=== PATIENT | male | born 1980 | race African-American/Black ===

== ENCOUNTER 2018-02-10 11:48 | Inpatient (IN) | payer SELFPAY ==
[~2018-02-10] VITALS: Ht 190.5 cm; Wt 64.0 kg
[2018-02-10] VITALS (8 sets, daily range): BP systolic 95–114; BP diastolic 64–74; PULSE 78–127; RESP 12–18; TEMP 98–98.4; O2SAT 98–100
[~2018-02-10 11:48] MED LIST: AMIT10TA13 PO
[2018-02-10] MEDS ORDERED: SODIUM CHLOR 0.9% 1000 ML INJ 1,000 ML IV ONE ×3 (12:30→15:15)
--- NOTE | 2018-02-10 12:34 | PD ---
HPI Chief Complaint: Respiratory Symptoms Time Seen by Provider: 12:18 Travel History International Travel<30 days: No Contact w/Intl Traveler<30days: No Traveled to known affect area: No History of Present Illness HPI 37-year-old male with PMH of HIV, noncompliant with medications 2 years presents the ED for evaluation of shortness of breath, nonproductive cough. The patient endorses diminished appetite, weakness. He denies fever, chills, chest pain, palpitations, diaphoresis, nausea, vomiting, changes in bowel habits , rectal bleeding, dysuria. Patient is largely sedentary. A friend is at bedside, notes the patient was "panting" earlier today and brought him in for evaluation. PFSH Past Medical History Diminished Hearing: No Immune Disorder: Yes Social History Alcohol Use: No (LAST DRINK 2 MOS AGO, HE USE TO DRINK HEAVY.) Tobacco Use: No (QUIT MARCH 2007) Substance Use: No Allergies-Medications (Allergen,Severity, Reaction): Coded Allergies: No Known Allergies (Verified , 01/15/10) Reported Meds & Prescriptions Reported Meds & Active Scripts Active Reported Elavil (Amitriptyline HCl) 10 Mg Tab 0 PO HS UNKNOWN DOSE Review of Systems Except as stated in HPI: all other systems reviewed are Neg Physical Exam Narrative GENERAL: Thin, chronically ill-appearing white male in no acute distress. SKIN: Focused skin assessment warm/dry. Mucous membranes dry. Multiple purpleish, dark brown, blanching plaques and nodules of the skin. HEAD: Normocephalic. EYES: No scleral icterus. No injection or drainage. NECK: Supple, trachea midline. No JVD or lymphadenopathy. CARDIOVASCULAR: Regular rate and rhythm without murmurs, gallops, or rubs. RESPIRATORY: Breath sounds clear and equal bilaterally. No accessory muscle use. GASTROINTESTINAL: Abdomen soft, non-tender, nondistended. Active bowel sounds. MUSCULOSKELETAL: No cyanosis, or edema. Negative Homans sign bilaterally. BACK: Nontender without obvious deformity. No CVA tenderness. Data Data Last Documented VS Vital Signs Date Time Temp Pulse Resp B/P (MAP) Pulse Ox O2 Delivery O2 Flow Rate FiO2 02/10/18 15:51 98.4 87 16 104/73 (83) 100 Room Air Orders Orders Sepsis Workup Initiated (02/10/18 ) Electrocardiogram (02/10/18 12:29) Complete Blood Count With Diff (02/10/18 12:29) Comprehensive Metabolic Panel (02/10/18 12:29) Prothrombin Time / Inr (Pt) (02/10/18 12:29) Act Partial Throm Time (Ptt) (02/10/18 12:29) Urinalysis - C+S If Indicated (02/10/18 12:29) Blood Culture (02/10/18 12:29) Chest, Single Ap (02/10/18 12:29) Blood Glucose (02/10/18 12:29) Ecg Monitoring (02/10/18 12:29) Iv Access Insert/Monitor (02/10/18 12:29) Oximetry (02/10/18 12:29) Sodium Chlor 0.9% 1000 Ml Inj (Ns 1000 M (02/10/18 12:30) Lactic Acid (02/10/18 12:29) Ct Pulmonary Angiogram (02/10/18 12:35) Sodium Chlor 0.9% 1000 Ml Inj (Ns 1000 M (02/10/18 13:30) Iohexol 350 Inj (Omnipaque 350 Inj) (02/10/18 14:26) Sodium Chlor 0.9% 1000 Ml Inj (Ns 1000 M (02/10/18 15:15) Ldh Serum (02/10/18 15:12) Sulfamethox/Trimethoprim Inj (Bactrim In (02/10/18 15:45) Labs Laboratory Tests Test 02/10/18 12:10 02/10/18 12:40 White Blood Count 5.7 TH/MM3 Red Blood Count 3.32 MIL/MM3 Hemoglobin 10.0 GM/DL Hematocrit 30.6 % Mean Corpuscular Volume 92.3 FL Mean Corpuscular Hemoglobin 30.0 PG Mean Corpuscular Hemoglobin Concent 32.5 % Red Cell Distribution Width 13.9 % Platelet Count 431 TH/MM3 Mean Platelet Volume 7.3 FL CBC Comment AUTO DIFF Differential Total Cells Counted 100 Neutrophils % (Manual) 21 % Band Neutrophils % 49 % Lymphocytes % 8 % Monocytes % 18 % Neutrophils # (Manual) 4.2 TH/MM3 Metamyelocytes 3 % Myelocytes 1 % Differential Comment FINAL DIFF MANUAL Platelet Estimate NORMAL Platelet Morphology Comment NORMAL Ovalocytes 1+ Prothrombin Time 12.0 SEC Prothromb Time International Ratio 1.2 RATIO Activated Partial Thromboplast Time 41.7 SEC Blood Urea Nitrogen 13 MG/DL Creatinine 0.99 MG/DL Random Glucose 104 MG/DL Total Protein 8.1 GM/DL Albumin 3.2 GM/DL Calcium Level 8.8 MG/DL Alkaline Phosphatase 312 U/L Aspartate Amino Transf (AST/SGOT) 35 U/L Alanine Aminotransferase (ALT/SGPT) 33 U/L Total Bilirubin 0.6 MG/DL Sodium Level 145 MEQ/L Potassium Level 3.5 MEQ/L Chloride Level 108 MEQ/L Carbon Dioxide Level 28.1 MEQ/L Anion Gap 9 MEQ/L Estimat Glomerular Filtration Rate 104 ML/MIN Lactate Dehydrogenase 491 U/L Lactic Acid Level 1.8 mmol/L MDM Medical Decision Making Medical Screen Exam Complete: Yes Emergency Medical Condition: Yes Differential Diagnosis PNA versus PE versus HIV versus AIDS versus metabolic derangement versus dehydration versus other Narrative Course 37-year-old male with PMH of HIV, noncompliant with medications 2 years presents the ED for evaluation of shortness of breath, nonproductive cough. The patient endorses diminished appetite, weakness. Patient is largely sedentary. A friend is at bedside, notes the patient was "panting" earlier today and brought him in for evaluation. Patient is afebrile, pulse 127, BP 95/ 65, respiratory rate 12 O2 saturation 98% on room air on presentation. On exam this is a thin, ill-appearing -English male with a dark blanching rash on the skin surface. Guaiac negative on rectal exam. IV was established. Patient was administered 2 L normal saline. Cultures were obtained. EKG rate 105, sinus tachycardia. Normal intervals. Normal axis. No acute ST changes. Reviewed by Dr. Calhoun. CXR: No acute cardia pulmonary disease per radiology read. CTA: 1. Negative for pulmonary embolus. There is mild peribronchial thickening and there is some ill-defined ground glass opacity at the lung bases. CBC: WBC 5.7. Hemoglobin 10.0. 49% band neutrophils. Coags: INR 1.2. CMP: No concerning abnormalities. Lactic acid 1.8. LDH:491 UA: On recheck pulse 98, BP 99/69. Patient was administered an additional fluid bolus. IV Bactrim was initiated. I discussed the results of the workup and plan with the patient. He is agreeable to admission. I spoke with Dr Vasques who agrees to accept the patient to the medicine service. Please see medicine notes for disposition. [facility] Point of Care Internal Pos. & Neg. Controls: Passed Fecal Specimen Occult Blood: Negative Raysa Bowers February 10, 2018 12:34
[2018-02-10 13:04] LABS: HEMATOCRIT 30.6 % (39.0-51.0); MEAN CELL VOLUME 92.3 FL (80.0-100.0); MEAN CORPUSCULAR HGB CONC 32.5 % (32.0-36.0); MEAN PLATELET VOLUME 7.3 FL (7.0-11.0); PLATELET COUNT 431 TH/MM3 (150-450); RED BLOOD COUNT 3.32 MIL/MM3 (4.50-5.90); RED CELL DISTRIBUTION WIDTH 13.9 % (11.6-17.2); WHITE BLOOD COUNT 5.7 TH/MM3 (4.0-11.0)
[2018-02-10 13:14] LABS: INTERNATIONAL NORMALIZED RATIO 1.2 RATIO
[2018-02-10 13:25] LABS: ALBUMIN 3.2 GM/DL (3.4-5.0); ALT (GPT) 33 U/L (12-78); AST (GOT) 35 U/L (15-37); BICARBONATE 28.1 MEQ/L (21.0-32.0); BLOOD UREA NITROGEN 13 MG/DL (7-18); CALCIUM 8.8 MG/DL (8.5-10.1); CHLORIDE 108 MEQ/L (98-107); CREATININE 0.99 MG/DL (0.60-1.30); GLOMERULAR FILTRATION RATE 104 ML/MIN (>89); GLUCOSE,RANDOM 104 MG/DL (74-106); SODIUM (NA) 145 MEQ/L (136-145)
[2018-02-10 13:27] LABS: ALKALINE PHOSPHATASE 312 U/L (45-117); TOTAL BILIRUBIN ADULT 0.6 MG/DL (0.2-1.0); TOTAL PROTEIN 8.1 GM/DL (6.4-8.2)
[2018-02-10 13:30] LABS: BANDS 49 % (0-6); LYMPHOCYTES 8 % (9-44); METAMYELOCYTES 3 % (0-1); MONOCYTES 18 % (0-8); MYELOCYTES 1 % (0-0); NEUTROPHIL # MANUAL DIFF 4.2 TH/MM3 (1.8-7.7); OVALOCYTES 1+ (NORMAL); POLYS (SEG NEUTROPHILS) 21 % (16-70)
--- NOTE | 2018-02-10 13:35 | RADRPT ---
EXAM DATE/TIME: 02/10/2018 12:59 [facility] COMPARISON: No previous studies available for comparison. INDICATIONS : Short of breath and weakness. MEDICAL HISTORY : HIV SURGICAL HISTORY : None. ENCOUNTER: Initial ACUITY: 2 days PAIN SCORE: 0/10 LOCATION: Bilateral chest FINDINGS: A single view of the chest demonstrates the lungs to be symmetrically aerated without evidence of mas s, infiltrate or effusion. The cardiomediastinal contours are unremarkable. Osseous structures are intact. CONCLUSION: 1. No acute cardiopulmonary disease. Jer Zhou MD on February 10, 2018 at 13:32 Board Certified Radiologist. This report was verified electronically.
[2018-02-10] MEDS ORDERED: IOHEXOL 350 MG/ML 10 ML VIAL (for RAD DIAG) IVCONTRAST ONE (14:26)
--- NOTE | 2018-02-10 15:01 | RADRPT ---
EXAM DATE/TIME: 02/10/2018 14:09 [facility] COMPARISON: No previous studies available for comparison. INDICATIONS : Shortness of breath, worsening over the past couple days. IV CONTRAST: 65 cc Omnipaque 350 (iohexol) IV RADIATION DOSE: 6.55 CTDIvol (mGy) MEDICAL HISTORY : HIV. SURGICAL HISTORY : None. ENCOUNTER: Initial ACUITY: 1 day PAIN SCALE: 0/10 LOCATION: chest TECHNIQUE: Volumetric scanning of the chest was performed using a pulmonary embolism protocol MIP images were re constructed. Using automated exposure control and adjustment of the mA and/or kV according to patien t size, radiation dose was kept as low as reasonably achievable to obtain optimal diagnostic quality images. DICOM format image data is available electronically for review and comparison. Follow-up recommendations for detected pulmonary nodules are based at a minimum on nodule size and pa tient risk factors according to Fleischner Society Guidelines. FINDINGS: PULMONARY ARTERIES: No filling defects are seen in the pulmonary arteries through the segmental level. LUNGS: There is no consolidation or pneumothorax . No concerning pulmonary nodule is visualized. Diffuse mi ld peribronchial thickening present. Minimal groundglass opacity at the lung bases. PLEURAE: There is no pleural thickening or pleural effusion. MEDIASTINUM: There is good visualization of the great vessels of the middle mediastinum. No evidence of mediastin al or hilar adenopathy/mass. MUSCULOSKELETAL: Within normal limits for patient age. MISCELLANEOUS: The visualized upper abdominal organs demonstrate no acute abnormality. CONCLUSION: 1. Negative for pulmonary embolus. There is mild peribronchial thickening and there is some ill-defin ed groundglass opacity at the lung bases, probably mild inflammatory change. Reji Alford MD on February 10, 2018 at 14:56 Board Certified Radiologist. This report was verified electronically.
[2018-02-10] MEDS ORDERED: SULFAMETHOX IV ONE ×2 (15:15)
[2018-02-10] MEDS ORDERED: TRIMETHOPRIM IV ONE ×2 (15:15)
[2018-02-10] MEDS ORDERED: WATER IV ONE ×2 (15:15)
[2018-02-10] MEDS ORDERED: DEXTROSE 5% IV ONE ×2 (15:15)
[2018-02-10] MEDS ORDERED: SULFAMETHOX/TRIMETHOPRIM INJ 320 MG in DEXTROSE 5% IN WATE 500 ML INJ 500 ML IV ONE ×2 (15:45)
[2018-02-10] MEDS ORDERED: SENNOSIDES 8.6 MG TAB PO PRN (16:45)
[2018-02-10] MEDS ORDERED: NALOXONE HCL 0.4 MG/ML AMP IV PUSH PRN (16:45)
[2018-02-10] MEDS ORDERED: SULFAMETHOX/TRIMETHOPRIM 160 MG/10 ML VIAL IV SCH (16:45)
[2018-02-10] MEDS ORDERED: MAGNESIUM HYDROXIDE SUSP 30 ML CUP PO PRN (16:45)
[2018-02-10] MEDS ORDERED: BISACODYL 10 MG SUPP RECTAL PRN (16:45)
[2018-02-10] MEDS ORDERED: SODIUM CHLORIDE 0.9% FLUSH 10 ML FLUSH IV FLUSH PRN (16:45)
[2018-02-10] MEDS ORDERED: LACTULOSE SYRUP 20 GM/30 ML CUP PO PRN (16:45)
[2018-02-10] MEDS: ENOXAPARIN SODIUM 30 MG/0.3 ML SYRINGE SQ SCH (17:14)
[2018-02-10] MEDS: SODIUM CHLOR 0.9% 1000 ML INJ 1,000 ML IV SCH (18:24)
--- NOTE | 2018-02-10 18:37 | PD ---
Physical Exam Narrative Please see mid-level provider note for full history and physical and disposition. Briefly, patient is HIV positive (unknown CD4 count), who presents with shortness of breath and cough. He presented to the ER afebrile, tachycardic, and slightly hypotensive. Labs showed decreased hemoglobin and hematocrit, but increased LDH. He was given IV fluids and Bactrim for possible PCP pneumonia. His tachycardia and hypotension resolved. He was admitted for further evaluation and management. Data Data Last Documented VS Vital Signs Date Time Temp Pulse Resp B/P (MAP) Pulse Ox O2 Delivery O2 Flow Rate FiO2 02/10/18 15:51 98.4 87 16 104/73 (83) 100 Room Air Orders Orders Sepsis Workup Initiated (02/10/18 ) Electrocardiogram (02/10/18 12:29) Complete Blood Count With Diff (02/10/18 12:29) Comprehensive Metabolic Panel (02/10/18 12:29) Prothrombin Time / Inr (Pt) (02/10/18 12:29) Act Partial Throm Time (Ptt) (02/10/18 12:29) Urinalysis - C+S If Indicated (02/10/18 12:29) Blood Culture (02/10/18 12:29) Chest, Single Ap (02/10/18 12:29) Blood Glucose (02/10/18 12:29) Ecg Monitoring (02/10/18 12:29) Iv Access Insert/Monitor (02/10/18 12:29) Oximetry (02/10/18 12:29) Sodium Chlor 0.9% 1000 Ml Inj (Ns 1000 M (02/10/18 12:30) Lactic Acid (02/10/18 12:29) Ct Pulmonary Angiogram (02/10/18 12:35) Sodium Chlor 0.9% 1000 Ml Inj (Ns 1000 M (02/10/18 13:30) Iohexol 350 Inj (Omnipaque 350 Inj) (02/10/18 14:26) Sodium Chlor 0.9% 1000 Ml Inj (Ns 1000 M (02/10/18 15:15) Ldh Serum (02/10/18 15:12) Sulfamethox/Trimethoprim Inj (Bactrim In (02/10/18 15:45) Admit Order (Ed Use Only) (02/10/18 16:21) Labs Laboratory Tests Test 02/10/18 12:10 02/10/18 12:40 White Blood Count 5.7 TH/MM3 Red Blood Count 3.32 MIL/MM3 Hemoglobin 10.0 GM/DL Hematocrit 30.6 % Mean Corpuscular Volume 92.3 FL Mean Corpuscular Hemoglobin 30.0 PG Mean Corpuscular Hemoglobin Concent 32.5 % Red Cell Distribution Width 13.9 % Platelet Count 431 TH/MM3 Mean Platelet Volume 7.3 FL CBC Comment AUTO DIFF Differential Total Cells Counted 100 Neutrophils % (Manual) 21 % Band Neutrophils % 49 % Lymphocytes % 8 % Monocytes % 18 % Neutrophils # (Manual) 4.2 TH/MM3 Metamyelocytes 3 % Myelocytes 1 % Differential Comment FINAL DIFF MANUAL Platelet Estimate NORMAL Platelet Morphology Comment NORMAL Ovalocytes 1+ Prothrombin Time 12.0 SEC Prothromb Time International Ratio 1.2 RATIO Activated Partial Thromboplast Time 41.7 SEC Blood Urea Nitrogen 13 MG/DL Creatinine 0.99 MG/DL Random Glucose 104 MG/DL Total Protein 8.1 GM/DL Albumin 3.2 GM/DL Calcium Level 8.8 MG/DL Alkaline Phosphatase 312 U/L Aspartate Amino Transf (AST/SGOT) 35 U/L Alanine Aminotransferase (ALT/SGPT) 33 U/L Total Bilirubin 0.6 MG/DL Sodium Level 145 MEQ/L Potassium Level 3.5 MEQ/L Chloride Level 108 MEQ/L Carbon Dioxide Level 28.1 MEQ/L Anion Gap 9 MEQ/L Estimat Glomerular Filtration Rate 104 ML/MIN Lactate Dehydrogenase 491 U/L Lactic Acid Level 1.8 mmol/L MDM Supervised Visit with LUCY: Yes Diagnosis Primary Impression: HIV (human immunodeficiency virus infection) Additional Impression: PCP (pneumocystis carinii pneumonia) Qualified Codes: B59 - Pneumocystosis Admitting Information Admitting Physician Requests: Admit Condition: Stable Linda Calhoun MD February 10, 2018 18:37
--- NOTE | 2018-02-10 18:58 | HHI.HP ---
[facility] Unknown Admission Diagnosis PNA, hx HIV Diagnoses: (1) PNA (pneumonia) Diagnosis: Principal (2) Bandemia Diagnosis: Principal (3) HIV (human immunodeficiency virus infection) Diagnosis: Principal Travel History International Travel<30 Days: No Contact w/Intl Traveler <30 Da: No Traveled to Known Affected Are: No History of Present Illness This is a 37-year-old male with a PMH of HIV (CD4 85 on 09/16/2007) and Noncompliance who presented to the ER with complaints of SOB and cough for 2-3 days. Denies fever, chills, chest pain or sick contacts. Not on Zithro/ Bactrim for prophylaxis as he is non-compliant w/ meds. On arrival, BP 97/66, HR 106, O2 sat 100% on RA, Temp 98.0. WBC 5.7, significant bandemia of 49%. Chemistry unremarkable. Lactic Acid 1.8. INR 1.2. CXR with no acute findings. CTA Pulm negative for PE, mild peribronchial thickening and groundglass opacity at bases probably mild inflammatory change. Started on Bactrim IV in ER. Review of Systems Except as stated in HPI: all other systems reviewed are Neg ROS: 14 point review of systems otherwise negative. Past Family Social History Past Medical History PMH: HIV (CD4 85 on 09/16/2007) and Noncompliance Past Surgical History PAST SURGICAL HISTORY: None Allergies: Coded Allergies: No Known Allergies (Verified , 01/15/10) Family History PAST FAMILY HISTORY: Reviewed. No h/o DM or CAD Social History PAST SOCIAL HISTORY: History of alcohol abuse, quit. Occasional black and mild. Negative for drugs. Physical Exam Vital Signs Vital Signs Date Time Temp Pulse Resp B/P (MAP) Pulse Ox O2 Delivery O2 Flow Rate FiO2 02/10/18 17:13 82 16 114/74 (87) 100 Room Air 02/10/18 15:51 98.4 87 16 104/73 (83) 100 Room Air 02/10/18 14:15 98 16 99/69 (79) 100 02/10/18 13:00 106 18 97/66 (76) 100 02/10/18 12:54 105 16 98 02/10/18 12:20 109 02/10/18 12:00 101/66 (78) 02/10/18 11:56 98.0 127 12 95/65 (75) 98 Physical Exam PE: GENERAL: Thin, chronically ill-appearing middle-aged black male in no acute distress. HEENT: PERRLA, EOMI. No scleral icterus or conjunctival pallor. No lid lag or facial droop. CARDIOVASCULAR: Regular rate and rhythm. No obvious murmurs to auscultation. No chest tenderness to palpation. RESPIRATORY: No obvious rhonchi or wheezing. Clear to auscultation. Breath sounds equal bilaterally. GASTROINTESTINAL: Abdomen soft, non-tender, nondistended. BS normal. MUSCULOSKELETAL: Extremities without clubbing, cyanosis, or edema. No obvious deformities. +Kaposis lesions NEUROLOGICAL: Awake, alert and oriented x4. No focal neurologic deficits. Moving both upper and lower extremities spontaneously. Laboratory Laboratory Tests Test 02/10/18 12:10 02/10/18 12:40 White Blood Count 5.7 Red Blood Count 3.32 Hemoglobin 10.0 Hematocrit 30.6 Mean Corpuscular Volume 92.3 Mean Corpuscular Hemoglobin 30.0 Mean Corpuscular Hemoglobin Concent 32.5 Red Cell Distribution Width 13.9 Platelet Count 431 Mean Platelet Volume 7.3 CBC Comment AUTO DIFF Differential Total Cells Counted 100 Neutrophils % (Manual) 21 Band Neutrophils % 49 Lymphocytes % 8 Monocytes % 18 Neutrophils # (Manual) 4.2 Metamyelocytes 3 Myelocytes 1 Differential Comment FINAL DIFF MANUAL Platelet Estimate NORMAL Platelet Morphology Comment NORMAL Ovalocytes 1+ Prothrombin Time 12.0 Prothromb Time International Ratio 1.2 Activated Partial Thromboplast Time 41.7 Blood Urea Nitrogen 13 Creatinine 0.99 Random Glucose 104 Total Protein 8.1 Albumin 3.2 Calcium Level 8.8 Alkaline Phosphatase 312 Aspartate Amino Transf (AST/SGOT) 35 Alanine Aminotransferase (ALT/SGPT) 33 Total Bilirubin 0.6 Sodium Level 145 Potassium Level 3.5 Chloride Level 108 Carbon Dioxide Level 28.1 Anion Gap 9 Estimat Glomerular Filtration Rate 104 Lactate Dehydrogenase 491 Lactic Acid Level 1.8 Date/Time Source Procedure Growth Status 02/10/18 12:45 Blood Peripheral Aerobic Blood Culture Pending Received 02/10/18 12:45 Blood Peripheral Anaerobic Blood Culture Pending Received Result Diagram: 02/10/18 1210 02/10/18 1210 Caprini VTE Risk Assessment Caprini VTE Risk Assessment: Mod/High Risk (score >= 2) Caprini Risk Assessment Model Point Value = 1 Point Value = 2 Point Value = 3 Point Value = 5 Age 41-60 Minor surgery BMI > 25 kg/m2 Swollen legs Varicose veins or History of unexplained or recurrent spontaneous Oral contraceptives or hormone replacement Sepsis (< 1 month) Serious lung disease, including pneumonia (< 1 month) Abnormal pulmonary function Acute myocardial infarction Congestive heart failure (< 1 month) History of inflammatory bowel disease Medical patient at bed rest Age 61-74 Arthroscopic surgery Major open surgery (> 45 min) Laparoscopic surgery (> 45 min) Malignancy Confined to bed (> 72 hours) Immobilizing plaster cast Central venous access Age >= 75 History of VTE Family history of VTE Factor V Leiden Prothrombin [id number] Lupus anticoagulant Anticardiolipin antibodies Elevated serum homocysteine Heparin-induced thrombocytopenia Other congenital or acquired thrombophilia Stroke (< 1 month) Elective arthroplasty Hip, pelvis, or leg fracture Acute spinal cord injury (< 1 month) Prophylaxis Regimen Total Risk Factor Score Risk Level Prophylaxis Regimen 0-1 Low Early ambulation 2 Moderate Order ONE of the following: *Sequential Compression Device (SCD) *Heparin 5000 units SQ BID 3-4 Higher Order ONE of the following medications: *Heparin 5000 units SQ TID *Enoxaparin/Lovenox 40 mg SQ daily (WT < 150 kg, CrCl > 30 mL/min) *Enoxaparin/Lovenox 30 mg SQ daily (WT < 150 kg, CrCl > 10-29 mL/min) *Enoxaparin/Lovenox 30 mg SQ BID (WT < 150 kg, CrCl > 30 mL/min) AND/OR *Sequential Compression Device (SCD) 5 or more Highest Order ONE of the following medications: *Heparin 5000 units SQ TID (Preferred with Epidurals) *Enoxaparin/Lovenox 40 mg SQ daily (WT < 150 kg, CrCl > 30 mL/min) *Enoxaparin/Lovenox 30 mg SQ daily (WT < 150 kg, CrCl > 10-29 mL/min) *Enoxaparin/Lovenox 30 mg SQ BID (WT < 150 kg, CrCl > 30 mL/min) AND *Sequential Compression Device (SCD) Assessment and Plan Problem List: (1) PNA (pneumonia) ICD Code: J18.9 - Pneumonia, unspecified organism (2) Bandemia ICD Code: D72.825 - Bandemia (3) HIV (human immunodeficiency virus infection) ICD Code: B20 - Human immunodeficiency virus [HIV] disease Status: Acute Assessment and Plan A/P: 1. PNA: +SOB/cough x2-3 days, +immunocompromised/non-compliant w/ meds, CXR w / no acute findings, CTA Pulm negative for PE, +peribronchial thickening and groundglass opacity at bases likely mild inflammatory change, images reviewed by me, started on Bactrim IV in ER. O2 sat normal, will hold treatment w/ steroids. Check Sputum Cultures. Consult ID for further evaluation, may need Pulmonary eval for possible Bronch. Symbicort, Mucinex, DuoNeb prn. Continue w / IV Abx, add Cefepime. 2. Bandemia: significant bandemia of 49%, follow up blood cultures, check Sputum Cultures as above, repeat labs in am. 3. HIV: +non-compliant w/ meds x2 yrs. Last CD 4 85 on 09/06/07, will check lymphocyte panel, currently on Bactrim as above, start Zithro 1200mg q7 days, ID Consult as above. 4. DVT Prophylaxis: Lovenox 5. Social work for d/c planning as needed. 6. Case discussed w/ ER physician at length, labs/records/imaging reviewed by me. Physician Certification 2 Midnight Certification Type: Admission for Inpatient Services Order for Inpatient Services The services are ordered in accordance with Medicare regulations or non- Medicare payer requirements, as applicable. In the case of services not specified as inpatient-only, they are appropriately provided as inpatient services in accordance with the 2-midnight benchmark. Estimated LOS (days): 2 days is the estimated time the patient will need to remain in the hospital, assuming treatment plan goals are met and no additional complications. Post-Hospital Plan: Not yet determined Raisa Bueno MD February 10, 2018 18:58
[2018-02-10] MEDS ORDERED: RESP: ALBUTEROL 2.5 MG/IPRATROPIUM 0.5 MG NEB (PRN) NEB (19:00)
[2018-02-10] MEDS ORDERED: ACETAMINOPHEN/HYDROcodone 325 MG/5 MG TAB PO PRN (19:45)
[2018-02-10] MEDS ORDERED: ACETAMINOPHEN/HYDROcodone 325 MG/10 MG TAB PO PRN (19:45)
[2018-02-10] MEDS ORDERED: PROCHLORPERAZINE INJ 10 MG/2 ML VIAL IV PUSH PRN (19:45)
[2018-02-10] MEDS ORDERED: AZITHROMYCIN 600 MG TAB PO SCH (20:00)
[2018-02-10 20:53] LABS: BILIRUBIN, URINE NEG (NEG); BLOOD, URINE NEG (NEG); GLUCOSE,URINE NEG (NEG); KETONE, URINE NEG (NEG); MUCUS URINE FEW /lpf (OCC); NITRITE,URINE NEG (NEG); URINE COLOR YELLOW (YELLW/STRAW); URINE LEUKOCYTE ESTERASE NEG (NEG)
[2018-02-10] MEDS: SODIUM CHLORIDE 0.9% FLUSH 10 ML FLUSH IV FLUSH SCH (21:00)
[2018-02-10] MEDS: CEFEPIME INJ 1,000 MG in SODIUM CHLORIDE 0.9% INJ 100 ML IV SCH (22:16)
[2018-02-10] MEDS: BUDESONIDE-FORMOTEROL 160/4.5 MCG INHALER INH SCH (22:17)
[2018-02-10] MEDS: guaiFENesin E.R. 600 MG TAB PO SCH (22:17)
[2018-02-10] MEDS: DOCUSATE SODIUM 50 MG/SENNA 8.6 MG TAB PO SCH (22:17)
[2018-02-10] MEDS ORDERED: NYSTATIN SUSP 500,000 U/5 ML CUP SWISH-SWAL ONE (23:45)
[2018-02-11] VITALS (7 sets, daily range): BP systolic 90–152; BP diastolic 51–67; PULSE 71–86; RESP 16–20; TEMP 98–98.6; O2SAT 97–100
[2018-02-11] MEDS: DEXTROSE 5% IV SCH ×10 (00:03→16:39)
[2018-02-11] MEDS: WATE IV SCH ×10 (00:03→16:39)
[2018-02-11] MEDS: SULFAMETHOX IV SCH ×10 (00:03→16:39)
[2018-02-11] MEDS: TRIMETHOPRIM IV SCH ×10 (00:03→16:39)
[2018-02-11] MEDS: SODIUM CHLOR 0.9% 1000 ML INJ 1,000 ML IV SCH ×3 (03:00→23:00)
[2018-02-11 04:49] LABS: ALBUMIN 2.6 GM/DL (3.4-5.0); ALKALINE PHOSPHATASE 237 U/L (45-117); ALT (GPT) 29 U/L (12-78); AST (GOT) 33 U/L (15-37); BICARBONATE 22.6 MEQ/L (21.0-32.0); BLOOD UREA NITROGEN 9 MG/DL (7-18); CALCIUM 7.8 MG/DL (8.5-10.1); CHLORIDE 111 MEQ/L (98-107); CREATININE 0.77 MG/DL (0.60-1.30); GLOMERULAR FILTRATION RATE 139 ML/MIN (>89); GLUCOSE,RANDOM 72 MG/DL (74-106); SODIUM (NA) 142 MEQ/L (136-145); TOTAL BILIRUBIN ADULT 0.2 MG/DL (0.2-1.0); TOTAL PROTEIN 6.6 GM/DL (6.4-8.2)
[2018-02-11] MEDS: CEFEPIME INJ 1,000 MG in SODIUM CHLORIDE 0.9% INJ 100 ML IV SCH (07:50)
[2018-02-11] MEDS: guaiFENesin E.R. 600 MG TAB PO SCH ×2 (09:00→20:41)
[2018-02-11] MEDS: SODIUM CHLORIDE 0.9% FLUSH 10 ML FLUSH IV FLUSH SCH ×2 (09:00→20:42)
[2018-02-11] MEDS: DOCUSATE SODIUM 50 MG/SENNA 8.6 MG TAB PO SCH ×2 (09:00→20:42)
[2018-02-11] MEDS: BUDESONIDE-FORMOTEROL 160/4.5 MCG INHALER INH SCH ×2 (09:12→20:41)
[2018-02-11] MEDS: NYSTATIN SUSP 500,000 U/5 ML CUP SWISH-SWAL SCH ×4 (09:13→20:41)
[2018-02-11] MEDS ORDERED: INFLUENZA VIRUS VACCINE (QUADRIVALENT) 0.5 ML SYR IM ONE (10:00)
[2018-02-11] MEDS ORDERED: PNEUMOCOCCAL POLYVALENT INJ 25 MCG/0.5 ML SYR IM ONE (10:00)
[2018-02-11] MEDS ORDERED: POTASSIUM CHLORIDE 20 MEQ CONTROLLED RELEASE TAB PO ONE (10:00)
--- NOTE | 2018-02-11 11:34 | HHI.PR ---
Subjective Remarks Follow-up pneumonia/PCP/HIV February 11, 2018-patient seen and examined, currently afebrile and denies any cough. Denies any significant shortness of breath. He has been noncompliant with medical care including HAART Objective Vitals Vital Signs Date Time Temp Pulse Resp B/P (MAP) Pulse Ox O2 Delivery O2 Flow Rate FiO2 02/11/18 08:12 98.5 82 20 104/59 (74) 97 02/11/18 07:52 97 21 02/11/18 05:02 21 02/11/18 03:25 98.6 78 16 97/56 (70) 97 02/10/18 22:00 98.4 78 16 102/64 (77) 98 02/10/18 17:13 82 16 114/74 (87) 100 Room Air 02/10/18 15:51 98.4 87 16 104/73 (83) 100 Room Air 02/10/18 14:15 98 16 99/69 (79) 100 02/10/18 13:00 106 18 97/66 (76) 100 02/10/18 12:54 105 16 98 02/10/18 12:20 109 02/10/18 12:00 101/66 (78) 02/10/18 11:56 98.0 127 12 95/65 (75) 98 I/O 02/10/18 02/10/18 02/10/18 02/11/18 02/11/18 02/11/18 07:00 15:00 23:00 07:00 15:00 23:00 Intake Total 4000 ml 240 ml Balance 4000 ml 240 ml Intake Oral 240 ml IV Total 4000 ml Result Diagram: 02/10/18 1210 02/11/18 [address] Angiography 02/10/18 1235 Signed Impressions: Service Date/Time: February 14:09 - CONCLUSION: 1. Negative for pulmonary embolus. There is mild peribronchial thickening and there is some ill-defined groundglass opacity at the lung bases, probably mild inflammatory change. Reji Alford MD Chest X-Ray 02/10/18 1229 Signed Impressions: Service Date/Time: February 12:59 - CONCLUSION: 1. No acute cardiopulmonary disease. Jer Zhou MD Objective Remarks GENERAL: NAD SKIN: Warm and dry. HEAD: Normocephalic. EYES: No scleral icterus. No injection or drainage. NECK: Supple, trachea midline. +lymphadenopathy. CARDIOVASCULAR: Regular rate and rhythm without murmurs, gallops, or rubs. RESPIRATORY: Breath sounds equal bilaterally. No accessory muscle use. GASTROINTESTINAL: Abdomen soft, non-tender, nondistended. MUSCULOSKELETAL: No cyanosis, or edema. BACK: Nontender without obvious deformity. No CVA tenderness. A/P Problem List: (1) PNA (pneumonia) ICD Code: J18.9 - Pneumonia, unspecified organism (2) Bandemia ICD Code: D72.825 - Bandemia (3) HIV (human immunodeficiency virus infection) ICD Code: B20 - Human immunodeficiency virus [HIV] disease Status: Acute Assessment and Plan 37-year-old man with 1. PNA: +immunocompromised/non-compliant w/ meds, CXR w/ no acute findings, CTA Pulm negative for PE, +peribronchial thickening and groundglass opacity at bases likely mild inflammatory change, started on Bactrim IV in ER. O2 sat normal, will hold treatment w/ steroids. Check Sputum Cultures. ID consulted for further evaluation, may need Pulmonary eval for possible Bronch. Symbicort , Mucinex, DuoNeb prn. Continue w/ IV Abx, as well as Cefepime. 2. Bandemia: significant bandemia of 49%, follow up blood cultures, Sputum Cultures pending as above 3. HIV: +non-compliant w/ meds x2 yrs. Last CD 4 85 on 09/06/07, lymphocyte panel pending, currently on Bactrim as above, contrinue Zithro 1200mg q7 days, ID Consult as above. 4. Oral thrush: Nystatin 5. DVT Prophylaxis: Claudio Choudhary MD February 11, 2018 11:34
[2018-02-11] MEDS: ENOXAPARIN SODIUM 30 MG/0.3 ML SYRINGE SQ SCH (16:39)
--- NOTE | 2018-02-11 18:56 | PD.ID.CON ---
History of Present Illness Service ID Consult Requested By Dr Earl Reason for Consult pt with PCP PNA, HIV dz Primary Care Physician Unknown Diagnoses: History of Present Illness 37 yo maale with HIV disease, non compliant, not taking HAARt for months, not seeing HIV providor for months, unaware of CD4 count presentes withresp complianst: productive cough, some CURRY no fever on presentation, nl ANC, prominent lymphocytopenia HIs CT showed few ground glass opcities, no changex on CXR Non hypoxic Started on BActrimm IV Pt told me he was taking Bactrim for PCP profilaxis Review of Systems Except as stated in HPI: all other systems reviewed are Neg Past Family Social History Allergies: Coded Allergies: No Known Allergies (Verified , 01/15/10) Past Medical History HIV dz non compliance Past Surgical History none Active Ordered Medications Medications where reviewed in EMR Antibiotics Include: azithro bacrtim cefepime Family History Reviewed. No h/o DM or CAD Social History History of alcohol abuse, quit. Occasional black and mild. Negative for drugs. Physical Exam Vital Signs Vital Signs Date Time Temp Pulse Resp B/P (MAP) Pulse Ox O2 Delivery O2 Flow Rate FiO2 02/11/18 15:11 98.5 78 16 98/62 (74) 100 02/11/18 11:35 98.0 86 16 101/67 (78) 99 02/11/18 08:12 98.5 82 20 104/59 (74) 97 02/11/18 07:52 97 21 02/11/18 05:02 21 02/11/18 03:25 98.6 78 16 97/56 (70) 97 02/10/18 22:00 98.4 78 16 102/64 (77) 98 Physical Exam CONSTITUTIONAL/GENERAL: This is a thin under nourished patient, in no apparent distress. TUBES/LINES/DRAINS: SKIN: No jaundice, rashes, or lesions. Skin temperature appropriate. Not diaphoretic. HEAD: Atraumatic. Normocephalic. EYES: Pupils equal and round and reactive. Extraocular motions intact. No scleral icterus. No injection or drainage. Fundi not examined. ENT: Hearing grossly normal. Nose without bleeding or purulent drainage. Throat without visible erythema, exudates, masses, or lesions. + oral thrush NECK: Trachea midline. Supple, nontender. No palpable thyroid enlargement or nodularity. CARDIOVASCULAR: Regular rate and rhythm without murmurs, gallops, or rubs. No JVD. Peripheral pulses symmetric. RESPIRATORY/CHEST: Symmetric, unlabored respirations. Clear to auscultation. Breath sounds equal bilaterally. No wheezes, rales, or rhonchi. GASTROINTESTINAL: Abdomen soft, non-tender, nondistended. No hepato-splenomegaly , or palpable masses. No guarding. Bowel sounds present. GENITOURINARY: Without palpable bladder distension. MUSCULOSKELETAL: Extremities without clubbing, cyanosis, or edema. No joint tenderness or effusion noted. No calf tenderness. No mottling or clubbing. LYMPHATICS: No palpable cervical or supraclavicular adenopathy. NEUROLOGICAL: Awake and alert. Motor and sensory grossly within normal limits. Follows commands. Clear speech. Moves all extremities. PSYCHIATRIC: No obvious anxiety/depression. no apparent hallucinations or other psychotic thought process. Laboratory Laboratory Tests Test 02/10/18 20:31 02/11/18 03:52 Urine Color YELLOW Urine Turbidity CLEAR Urine pH 7.0 Urine Specific [place] GREATER THAN 1.050 Urine Protein 30 Urine Glucose (UA) NEG Urine Ketones NEG Urine Occult Blood NEG Urine Nitrite NEG Urine Bilirubin NEG Urine Urobilinogen 4.0 Urine Leukocyte Esterase NEG Urine RBC LESS THAN 1 Urine WBC 1 Urine Mucus FEW Microscopic Urinalysis Comment CATH-CULT NOT IND Blood Urea Nitrogen 9 Creatinine 0.77 Random Glucose 72 Total Protein 6.6 Albumin 2.6 Calcium Level 7.8 Alkaline Phosphatase 237 Aspartate Amino Transf (AST/SGOT) 33 Alanine Aminotransferase (ALT/SGPT) 29 Total Bilirubin 0.2 Sodium Level 142 Potassium Level 3.4 Chloride Level 111 Carbon Dioxide Level 22.6 Anion Gap 8 Estimat Glomerular Filtration Rate 139 Date/Time Source Procedure Growth Status 02/10/18 12:45 Blood Peripheral Aerobic Blood Culture - Preliminary NO GROWTH IN 1 DAY Resulted 02/10/18 12:45 Blood Peripheral Anaerobic Blood Culture - Preliminary NO GROWTH IN 1 DAY Resulted Result Diagram: 02/10/18 1210 02/11/18 0352 Imaging CTA findings reviewed with radiologist Last Impressions CT Angiography 02/10/18 0195 Signed Impressions: Service Date/Time: February 14:09 - CONCLUSION: 1. Negative for pulmonary embolus. There is mild peribronchial thickening and there is some ill-defined groundglass opacity at the lung bases, probably mild inflammatory change. Reji Alford MD Chest X-Ray 02/10/18 1229 Signed Impressions: Service Date/Time: February 12:59 - CONCLUSION: 1. No acute cardiopulmonary disease. Jer Zhou MD Assessment and Plan Assessment and Plan HIV disease, clinically AIDS Non compliant Early PCP PNA vs other atypical PNA (viral, mycoplasmal) - fu CD4 - sputum studies - azitho Bactrim -dc cefepime start CFTX Discussed Condition With Prashanth Christian,Reyna Alcantar MD February 11, 2018 18:55
[2018-02-11] MEDS: AZITHROMYCIN INJ 500 MG in SODIUM CHLOR 0.9% 250 ML INJ 250 ML IV SCH (20:41)
[2018-02-12] MEDS: cefTRIAXone INJ 2,000 MG in SODIUM CHLORIDE 0.9% INJ 100 ML IV SCH ×2 (00:54→20:43)
[2018-02-12] MEDS: DEXTROSE 5% IV SCH ×6 (02:10→16:36)
[2018-02-12] MEDS: SULFAMETHOX IV SCH ×6 (02:10→16:36)
[2018-02-12] MEDS: TRIMETHOPRIM IV SCH ×6 (02:10→16:36)
[2018-02-12] MEDS: WATE IV SCH ×6 (02:10→16:36)
[2018-02-12 03:58] VITALS: BP 103/56; PULSE 73; RESP 12; TEMP 98.4; O2SAT 99
[2018-02-12 07:30] VITALS: BP 97/60; PULSE 71; RESP 18; TEMP 98.5; O2SAT 100
[2018-02-12] MEDS: BUDESONIDE-FORMOTEROL 160/4.5 MCG INHALER INH SCH ×2 (08:19→21:49)
[2018-02-12] MEDS: SODIUM CHLOR 0.9% 1000 ML INJ 1,000 ML IV SCH ×2 (08:19→16:36)
[2018-02-12] MEDS: SODIUM CHLORIDE 0.9% FLUSH 10 ML FLUSH IV FLUSH SCH ×2 (08:19→21:00)
[2018-02-12] MEDS: guaiFENesin E.R. 600 MG TAB PO SCH ×2 (08:20→21:00)
[2018-02-12] MEDS: DOCUSATE SODIUM 50 MG/SENNA 8.6 MG TAB PO SCH ×2 (08:20→21:00)
[2018-02-12] MEDS: NYSTATIN SUSP 500,000 U/5 ML CUP SWISH-SWAL SCH ×4 (08:20→21:50)
--- NOTE | 2018-02-12 08:48 | EKG ---
Date Performed: 02/10/2018 Time Performed: 12:52:14 PTAGE: 37 years EKG: SINUS TACHYCARDIA ABNORMAL RHYTHM ECG PREVIOUS TRACING : 09/16/2007 01.40 DOCTOR: Lalito Alvarez Interpretating Date/Time 02/12/2018 08:42:52
--- NOTE | 2018-02-12 08:53 | HHI.PR ---
Subjective Remarks Follow-up pneumonia/PCP/HIV February 11, 2018-patient seen and examined, currently afebrile and denies any cough. Denies any significant shortness of breath. He has been noncompliant with medical care including HAART February 12, 2018-patient seen and examined, afebrile, positive for shortness of breath Objective Vitals Vital Signs Date Time Temp Pulse Resp B/P (MAP) Pulse Ox O2 Delivery O2 Flow Rate FiO2 02/12/18 07:30 98.5 71 18 97/60 (72) 100 02/12/18 03:58 98.4 73 12 103/56 (72) 99 02/11/18 23:39 98.4 71 16 152/57 (88) 98 02/11/18 19:52 98.5 74 16 90/51 (64) 98 02/11/18 15:11 98.5 78 16 98/62 (74) 100 02/11/18 11:35 98.0 86 16 101/67 (78) 99 I/O 02/11/18 02/11/18 02/11/18 02/12/18 02/12/18 02/12/18 07:00 15:00 23:00 07:00 15:00 23:00 Intake Total 240 ml 100 ml 500 ml 500 ml Balance 240 ml 100 ml 500 ml 500 ml Intake Oral 240 ml IV Total 100 ml 500 ml 500 ml Result Diagram: 02/10/18 1210 02/11/18 [address] Angiography 02/10/18 1235 Signed Impressions: Service Date/Time: February 14:09 - CONCLUSION: 1. Negative for pulmonary embolus. There is mild peribronchial thickening and there is some ill-defined groundglass opacity at the lung bases, probably mild inflammatory change. Reji Alford MD Chest X-Ray 02/10/18 1229 Signed Impressions: Service Date/Time: February 12:59 - CONCLUSION: 1. No acute cardiopulmonary disease. Jer Zhou MD Objective Remarks GENERAL: NAD SKIN: Warm and dry. HEAD: Normocephalic. EYES: No scleral icterus. No injection or drainage. NECK: Supple, trachea midline. +lymphadenopathy. CARDIOVASCULAR: Regular rate and rhythm without murmurs, gallops, or rubs. RESPIRATORY: Breath sounds equal bilaterally. No accessory muscle use. GASTROINTESTINAL: Abdomen soft, non-tender, nondistended. MUSCULOSKELETAL: No cyanosis, or edema. BACK: Nontender without obvious deformity. No CVA tenderness. A/P Problem List: (1) PNA (pneumonia) ICD Code: J18.9 - Pneumonia, unspecified organism (2) Bandemia ICD Code: D72.825 - Bandemia (3) HIV (human immunodeficiency virus infection) ICD Code: B20 - Human immunodeficiency virus [HIV] disease Status: Acute Assessment and Plan 37-year-old man with 1. Early PCP PNA vs other atypical PNA: +immunocompromised/non-compliant w/ meds, CXR w/ no acute findings, CTA Pulm negative for PE, +peribronchial thickening and groundglass opacity at bases likely mild inflammatory change, Currently on azithromycin, Bactrim, Rocephin IV per ID Monitor culture including sputum, blood. Continue Symbicort, Mucinex, DuoNeb prn. . 2. Bandemia: Continue treatment as an above 3. HIV: +non-compliant w/ meds x2 yrs. Last CD 4 85 on 09/06/07, lymphocyte panel pending, currently on Bactrim and Zithro 1200mg q7 days Appreciate input from ID 4. Oral thrush: Continue nystatin 5. DVT Prophylaxis: Lovenox Transfer to Claudio Corona MD February 12, 2018 08:53
[2018-02-12 12:08] VITALS: BP 112/62; PULSE 80; RESP 18; TEMP 98.7; O2SAT 100
--- NOTE | 2018-02-12 14:38 | HHI.PR ---
Addendum to Inpatient Note Addendum Reason: Additional Documentation Additional Information oral thrush - will start fluconazole Reyna Haynes MD February 12, 2018 14:38
[2018-02-12] MEDS: FLUCONAZOLE 200 MG TAB PO SCH (16:36)
[2018-02-12] MEDS: ENOXAPARIN SODIUM 30 MG/0.3 ML SYRINGE SQ SCH (16:37)
[2018-02-12 16:38] VITALS: BP 104/69; PULSE 67; RESP 18; TEMP 98.1; O2SAT 100
[2018-02-12 19:48] VITALS: BP 103/57; PULSE 76; RESP 15; TEMP 98.6; O2SAT 99
[2018-02-12] MEDS: AZITHROMYCIN INJ 500 MG in SODIUM CHLOR 0.9% 250 ML INJ 250 ML IV SCH (21:50)
[2018-02-12 23:35] VITALS: BP 93/50; PULSE 79; RESP 16; TEMP 98.3; O2SAT 100
[2018-02-12 23:52] LABS: CD3-/CD16+CD56+ PERCENT 10 % (4-25); CD3-CD16+CD56+ (ABSOLUTE) 52 (70-760); LYMPHOCYTES, ABSOLUTE 509 (850-3900)
[2018-02-13] MEDS: WATE IV SCH ×6 (00:44→15:50)
[2018-02-13] MEDS: SULFAMETHOX IV SCH ×6 (00:44→15:50)
[2018-02-13] MEDS: TRIMETHOPRIM IV SCH ×6 (00:44→15:50)
[2018-02-13] MEDS: DEXTROSE 5% IV SCH ×6 (00:44→15:50)
[2018-02-13 03:01] VITALS: BP 86/57; PULSE 67; RESP 18; TEMP 98.7; O2SAT 96
[2018-02-13] MEDS: SODIUM CHLOR 0.9% 1000 ML INJ 1,000 ML IV SCH (05:00)
--- NOTE | 2018-02-13 07:36 | HHI.PR ---
Subjective Remarks Follow-up pneumonia/PCP/HIV February 11, 2018-patient seen and examined, currently afebrile and denies any cough. Denies any significant shortness of breath. He has been noncompliant with medical care including HAART February 12, 2018-patient seen and examined, afebrile, positive for shortness of breath February 13, 2018-patient seen and examined, states he is feeling much better since admission. No chest pain, shortness of breath, dizziness. Tolerating p.o. now denies any more oral discomfort Objective Vitals Vital Signs Date Time Temp Pulse Resp B/P (MAP) Pulse Ox O2 Delivery O2 Flow Rate FiO2 02/13/18 03:01 98.7 67 18 86/57 (67) 96 02/12/18 23:35 98.3 79 16 93/50 (64) 100 02/12/18 19:48 98.6 76 15 103/57 (72) 99 02/12/18 16:38 98.1 67 18 104/69 (81) 100 02/12/18 12:08 98.7 80 18 112/62 (79) 100 I/O 02/12/18 02/12/18 02/12/18 02/13/18 02/13/18 02/13/18 07:00 15:00 23:00 07:00 15:00 23:00 Intake Total 500 ml Output Total 900 ml Balance 500 ml -900 ml IV Total 500 ml Output Urine Total 900 ml Result Diagram: 02/10/18 1210 02/11/18 0352 Objective Remarks GENERAL: NAD SKIN: Warm and dry. HEAD: Normocephalic. EYES: No scleral icterus. No injection or drainage. NECK: Supple, trachea midline. +lymphadenopathy. CARDIOVASCULAR: Regular rate and rhythm without murmurs, gallops, or rubs. RESPIRATORY: Breath sounds equal bilaterally. No accessory muscle use. GASTROINTESTINAL: Abdomen soft, non-tender, nondistended. MUSCULOSKELETAL: No cyanosis, or edema. BACK: Nontender without obvious deformity. No CVA tenderness. A/P Problem List: (1) PNA (pneumonia) ICD Code: J18.9 - Pneumonia, unspecified organism (2) Bandemia ICD Code: D72.825 - Bandemia (3) HIV (human immunodeficiency virus infection) ICD Code: B20 - Human immunodeficiency virus [HIV] disease Status: Acute Assessment and Plan 37-year-old man with 1. Early PCP PNA vs other atypical PNA: Improving +immunocompromised/non-compliant w/ meds, CXR w/ no acute findings, CTA Pulm negative for PE, +peribronchial thickening and groundglass opacity at bases likely mild inflammatory change, Currently on azithromycin, Bactrim, Rocephin IV per ID Monitor culture including sputum, blood. Continue Symbicort, Mucinex, DuoNeb prn. . 2. Bandemia: Continue treatment as an above 3. HIV: +non-compliant w/ meds x2 yrs. Last CD 4 85 on 09/06/07, however absolute CD4 count less than 20 on February 11, 2018, currently on Bactrim and Zithro 1200mg q7 days Appreciate input from ID 4. Oral thrush: Continue nystatin, Diflucan 200 mg daily 5. DVT Prophylaxis: Claudio Choudhary MD February 13, 2018 07:36
[2018-02-13] MEDS ORDERED: POTASSIUM CHLORIDE 10 MEQ CONTROLLED RELEASE TAB PO ONE (07:45)
[2018-02-13 08:18] VITALS: BP 100/55; PULSE 78; RESP 20; TEMP 97.9; O2SAT 95
[2018-02-13] MEDS: SODIUM CHLORIDE 0.9% FLUSH 10 ML FLUSH IV FLUSH SCH ×2 (09:00→20:29)
[2018-02-13] MEDS: guaiFENesin E.R. 600 MG TAB PO SCH ×3 (09:00→20:29)
[2018-02-13] MEDS: BUDESONIDE-FORMOTEROL 160/4.5 MCG INHALER INH SCH ×2 (09:01→20:31)
[2018-02-13] MEDS: FLUCONAZOLE 200 MG TAB PO SCH (09:02)
[2018-02-13] MEDS: NYSTATIN SUSP 500,000 U/5 ML CUP SWISH-SWAL SCH ×4 (09:02→20:29)
[2018-02-13 12:39] VITALS: BP 112/60; PULSE 72; RESP 20; TEMP 98.2; O2SAT 97
[2018-02-13 16:00] VITALS: BP 110/60; PULSE 70; RESP 18; TEMP 98.2; O2SAT 96
[2018-02-13] MEDS: ENOXAPARIN SODIUM 30 MG/0.3 ML SYRINGE SQ SCH (18:11)
[2018-02-13 20:04] VITALS: BP 102/51; PULSE 68; RESP 16; TEMP 98; O2SAT 100
[2018-02-13] MEDS: AZITHROMYCIN INJ 500 MG in SODIUM CHLOR 0.9% 250 ML INJ 250 ML IV SCH (20:29)
[2018-02-13] MEDS: cefTRIAXone INJ 2,000 MG in SODIUM CHLORIDE 0.9% INJ 100 ML IV SCH (23:43)
[2018-02-13 23:58] VITALS: BP 102/56; PULSE 66; RESP 16; TEMP 98.2; O2SAT 99
[2018-02-14] MEDS: TRIMETHOPRIM IV SCH ×4 (00:48→09:03)
[2018-02-14] MEDS: DEXTROSE 5% IV SCH ×4 (00:48→09:03)
[2018-02-14] MEDS: WATE IV SCH ×4 (00:48→09:03)
[2018-02-14] MEDS: SULFAMETHOX IV SCH ×4 (00:48→09:03)
[2018-02-14 03:34] VITALS: BP 90/60; PULSE 66; RESP 16; TEMP 98.2; O2SAT 98
[2018-02-14 08:16] VITALS: BP 102/51; PULSE 61; RESP 16; TEMP 98.3; O2SAT 100
--- NOTE | 2018-02-14 08:23 | HHI.PR ---
Subjective Remarks Follow-up pneumonia/PCP/HIV February 11, 2018-patient seen and examined, currently afebrile and denies any cough. Denies any significant shortness of breath. He has been noncompliant with medical care including HAART February 12, 2018-patient seen and examined, afebrile, positive for shortness of breath February 13, 2018-patient seen and examined, states he is feeling much better since admission. No chest pain, shortness of breath, dizziness. Tolerating p.o. now denies any more oral discomfort February 14, 2018-patient seen and examined, denies any acute event overnight. Currently afebrile. States he is feeling a lot better now. Looking for possible discharge home today Objective Vitals Vital Signs Date Time Temp Pulse Resp B/P (MAP) Pulse Ox O2 Delivery O2 Flow Rate FiO2 02/14/18 08:16 98.3 61 16 102/51 (68) 100 02/14/18 03:34 98.2 66 16 90/60 (70) 98 02/13/18 23:58 98.2 66 16 102/56 (71) 99 02/13/18 20:04 98.0 68 16 102/51 (68) 100 02/13/18 16:00 98.2 70 18 110/60 (77) 96 02/13/18 12:39 98.2 72 20 112/60 (77) 97 I/O 02/13/18 02/13/18 02/13/18 02/14/18 02/14/18 02/14/18 07:00 15:00 23:00 07:00 15:00 23:00 Output Total 900 ml Balance -900 ml Output Urine Total 900 ml # Voids 1 Result Diagram: 02/10/18 1210 02/11/18 [address] Angiography 02/10/18 1235 Signed Impressions: Service Date/Time: February 14:09 - CONCLUSION: 1. Negative for pulmonary embolus. There is mild peribronchial thickening and there is some ill-defined groundglass opacity at the lung bases, probably mild inflammatory change. Reji Alford MD Chest X-Ray 02/10/18 1229 Signed Impressions: Service Date/Time: February 12:59 - CONCLUSION: 1. No acute cardiopulmonary disease. Jer Zhou MD Objective Remarks GENERAL: NAD SKIN: Warm and dry. HEAD: Normocephalic. EYES: No scleral icterus. No injection or drainage. NECK: Supple, trachea midline. +lymphadenopathy. CARDIOVASCULAR: Regular rate and rhythm without murmurs, gallops, or rubs. RESPIRATORY: Breath sounds equal bilaterally. No accessory muscle use. GASTROINTESTINAL: Abdomen soft, non-tender, nondistended. MUSCULOSKELETAL: No cyanosis, or edema. BACK: Nontender without obvious deformity. No CVA tenderness. A/P Problem List: (1) PNA (pneumonia) ICD Code: J18.9 - Pneumonia, unspecified organism (2) Bandemia ICD Code: D72.825 - Bandemia (3) HIV (human immunodeficiency virus infection) ICD Code: B20 - Human immunodeficiency virus [HIV] disease Status: Acute Assessment and Plan 37-year-old man with 1. Early PCP PNA vs other atypical PNA: Improving +immunocompromised/non-compliant w/ meds, CXR w/ no acute findings, CTA Pulm negative for PE, +peribronchial thickening and ground glass opacity at bases likely mild inflammatory change, Currently on azithromycin, Bactrim, Rocephin IV per ID Monitor culture including sputum, blood. Continue Symbicort, Mucinex, DuoNeb prn. . 2. Bandemia: Continue treatment as an above 3. HIV: +non-compliant w/ meds x2 yrs. Last CD 4 85 on 09/06/07, however absolute CD4 count less than 20 on February 11, 2018, currently on Bactrim and Zithro Appreciate input from ID 4. Oral thrush: Improving Continue nystatin, Diflucan 200 mg daily 5. DVT Prophylaxis: Claudio Choudhary MD February 14, 2018 08:23
[2018-02-14] MEDS: SODIUM CHLORIDE 0.9% FLUSH 10 ML FLUSH IV FLUSH SCH ×2 (09:00→21:15)
[2018-02-14] MEDS: guaiFENesin E.R. 600 MG TAB PO SCH ×2 (09:00→21:00)
[2018-02-14] MEDS: FLUCONAZOLE 200 MG TAB PO SCH (09:02)
[2018-02-14] MEDS: NYSTATIN SUSP 500,000 U/5 ML CUP SWISH-SWAL SCH ×4 (09:02→21:14)
[2018-02-14] MEDS: BUDESONIDE-FORMOTEROL 160/4.5 MCG INHALER INH SCH ×2 (09:03→21:00)
[2018-02-14 12:32] VITALS: BP 102/69; PULSE 60; RESP 20; TEMP 97.4; O2SAT 100
--- NOTE | 2018-02-14 13:23 | HHI.DCPOC ---
Discharge Care Plan Diagnosis: (1) PNA (pneumonia) (2) Bandemia (3) HIV (human immunodeficiency virus infection) (4) PCP (pneumocystis carinii pneumonia) Your Health Problems Are: Exercise Tolerance Cough Shortness of Breath Goals to Promote Your Health * To prevent worsening of your condition and complications * To maintain your health at the optimal level Directions to Meet Your Goals Take your medications as prescribed Follow your dietary instruction Follow activity as directed Keep your appointments as scheduled Take your immunizations and boosters as scheduled If your symptoms worsen call your PCP, if no PCP go to Urgent Care Center or Emergency Room Smoking is Dangerous to Your Health. Avoid second hand smoke Call the 24-hour hour crisis hotline for domestic abuse at [facility] February 14, 2018 13:23
--- NOTE | 2018-02-14 13:45 | HHI.DS ---
Discharge Summary Admission Date February 10, 2018 at 16:22 Discharge Date: February 14, 2018 Admitting Diagnosis PNA, hx HIV (1) PNA (pneumonia) ICD Code: J18.9 - Pneumonia, unspecified organism (2) Bandemia ICD Code: D72.825 - Bandemia (3) HIV (human immunodeficiency virus infection) ICD Code: B20 - Human immunodeficiency virus [HIV] disease Status: Acute Procedures None Brief History - From Admission This is a 37-year-old male with a PMH of HIV (CD4 85 on 09/16/2007) and Noncompliance who presented to the ER with complaints of SOB and cough for 2-3 days. Denies fever, chills, chest pain or sick contacts. Not on Zithro/ Bactrim for prophylaxis as he is non-compliant w/ meds. On arrival, BP 97/66, HR 106, O2 sat 100% on RA, Temp 98.0. WBC 5.7, significant bandemia of 49%. Chemistry unremarkable. Lactic Acid 1.8. INR 1.2. CXR with no acute findings. CTA Pulm negative for PE, mild peribronchial thickening and groundglass opacity at bases probably mild inflammatory change. Started on Bactrim IV in ER. CBC/BMP: 02/10/18 1210 02/11/18 [address] Angiography 02/10/18 1235 Signed Impressions: Service Date/Time: February 14:09 - CONCLUSION: 1. Negative for pulmonary embolus. There is mild peribronchial thickening and there is some ill-defined groundglass opacity at the lung bases, probably mild inflammatory change. Reji Alford MD Chest X-Ray 02/10/18 1229 Signed Impressions: Service Date/Time: February 12:59 - CONCLUSION: 1. No acute cardiopulmonary disease. Jer Zhou MD PE at Discharge GENERAL: NAD SKIN: Warm and dry. HEAD: Normocephalic. EYES: No scleral icterus. No injection or drainage. NECK: Supple, trachea midline. +lymphadenopathy. CARDIOVASCULAR: Regular rate and rhythm without murmurs, gallops, or rubs. RESPIRATORY: Breath sounds equal bilaterally. No accessory muscle use. GASTROINTESTINAL: Abdomen soft, non-tender, nondistended. MUSCULOSKELETAL: No cyanosis, or edema. BACK: Nontender without obvious deformity. No CVA tenderness. Hospital Course While in hospital, patient was treated for: 1. Early PCP PNA vs other atypical PNA: Improving +immunocompromised/non-compliant w/ meds, CXR w/ no acute findings, CTA Pulm negative for PE, +peribronchial thickening and ground glass opacity at bases likely mild inflammatory change, Infectious disease specialist was consulted Treated with azithromycin, Bactrim, Rocephin IV Treated with Symbicort, Mucinex, DuoNeb prn. . 2. Bandemia: Continue treatment as an above 3. HIV: +non-compliant w/ meds x2 yrs. Last CD 4 85 on 09/06/07, however absolute CD4 count less than 20 on February 11, 2018,Treated with Bactrim and Zithro Appreciate input from ID 4. Oral thrush: Improving Treated with nystatin, Diflucan 200 mg daily 5. DVT Prophylaxis: Lovenox Pt Condition on Discharge: Good Discharge Disposition: Discharge Home Discharge Time: <= 30 minutes Discharge Instructions DIET: Follow Instructions for: Heart Healthy Diet Activities you can perform: Regular-No Restrictions Follow up Referrals: PCP Follow-up - 2-3 Days Claudio Earl MD February 14, 2018 13:45
--- NOTE | 2018-02-14 14:47 | HHI.IDPN ---
Subjective Subjective Remarks doing better on RA cough , exppectoration resolved No sputum submitted No fver CD4 < 20 Antibiotics IV bactrim CTX azithro Allergies: Coded Allergies: No Known Allergies (Verified , 01/15/10) Objective . Vital Signs Date Time Temp Pulse Resp B/P (MAP) Pulse Ox O2 Delivery O2 Flow Rate FiO2 02/14/18 12:32 97.4 60 20 102/69 (80) 100 02/14/18 08:16 98.3 61 16 102/51 (68) 100 02/14/18 03:34 98.2 66 16 90/60 (70) 98 02/13/18 23:58 98.2 66 16 102/56 (71) 99 02/13/18 20:04 98.0 68 16 102/51 (68) 100 02/13/18 16:00 98.2 70 18 110/60 (77) 96 02/14/18 02/14/18 02/15/18 15:00 23:00 07:00 Output Total 700 ml Balance -700 ml Output Urine Total 700 ml Imaging Last Impressions CT Angiography 02/10/18 1235 Signed Impressions: Service Date/Time: February 14:09 - CONCLUSION: 1. Negative for pulmonary embolus. There is mild peribronchial thickening and there is some ill-defined groundglass opacity at the lung bases, probably mild inflammatory change. Reji Alford MD Chest X-Ray 02/10/18 1229 Signed Impressions: Service Date/Time: February 12:59 - CONCLUSION: 1. No acute cardiopulmonary disease. Jer Zhou MD Physical Exam CONSTITUTIONAL/GENERAL: This is a thin under nourished patient, in no apparent distress. TUBES/LINES/DRAINS: SKIN: No jaundice, rashes, or lesions. ENT:oral thrush no longer seen CARDIOVASCULAR: Regular rate and rhythm without murmurs, gallops, or rubs. No JVD. Peripheral pulses symmetric. RESPIRATORY/CHEST: Symmetric, unlabored respirations. Clear to auscultation. Breath sounds equal bilaterally. No wheezes, rales, or rhonchi. GASTROINTESTINAL: Abdomen soft, non-tender, nondistended. No hepato-splenomegaly , or palpable masses. No guarding. Bowel sounds present. MUSCULOSKELETAL: Extremities without clubbing, cyanosis, or edema. NEUROLOGICAL: Awake and alert. Motor and sensory grossly within normal limits. Follows commands. Clear speech. Moves all extremities. PSYCHIATRIC: No obvious anxiety/depression. no apparent hallucinations or other psychotic thought process. Assessment & Plan Remarks HIV disease, terminal AIDS Non compliant Early PCP PNA vs other atypical PNA (viral, mycoplasmal) Oral thrush - Bactrim po 15 mg/kg of TMP component to complete 3 wks, then resume daily profilaxis Bactrim DS 2 pills 3 times a day x 21 day from the first day of IV needs weekly CBC and CMP - dc CFTX - azithro 1200 weekly - complete 2 weeks of Fluconazole 200 - needs to f/u with HIV provider as soon as possible after d/c and be restarted on HAART OK to dc from Reyna Leary MD February 14, 2018 14:47
[2018-02-14 15:42] VITALS: BP 105/59; PULSE 47; RESP 20; TEMP 97.8; O2SAT 96
[2018-02-14] MEDS: ENOXAPARIN SODIUM 30 MG/0.3 ML SYRINGE SQ SCH (15:59)
[2018-02-14] MEDS ORDERED: SULF1TAB23 PO (16:23)
[2018-02-14] MEDS ORDERED: Budeson-Formot 160-4.5 Mcg Inh INH (16:23)
[2018-02-14] MEDS ORDERED: DIFL200T PO (16:23)
[2018-02-14] MEDS ORDERED: Nystatin Liq SWISH-SWAL (16:23)
[2018-02-14] MEDS ORDERED: AZIT600T PO (16:23)
[2018-02-14] MEDS ORDERED: guaiFENesin ER PO (16:23)
[2018-02-14 16:43] LABS: HEMATOCRIT 27.3 % (39.0-51.0); HEMOGLOBIN 8.9 GM/DL (13.0-17.0); MEAN CELL VOLUME 91.5 FL (80.0-100.0); MEAN CORPUSCULAR HEMOGLOBIN 29.8 PG (27.0-34.0); MEAN CORPUSCULAR HGB CONC 32.6 % (32.0-36.0); MEAN PLATELET VOLUME 8.1 FL (7.0-11.0); PLATELET COUNT 355 TH/MM3 (150-450); RED BLOOD COUNT 2.99 MIL/MM3 (4.50-5.90); RED CELL DISTRIBUTION WIDTH 13.8 % (11.6-17.2); WHITE BLOOD COUNT 1.3 TH/MM3 (4.0-11.0)
[2018-02-14 17:12] LABS: BANDS 21 % (0-6); LYMPHOCYTES 14 % (9-44); METAMYELOCYTES 3 % (0-1); MONOCYTES 10 % (0-8); MYELOCYTES 1 % (0-0); NEUTROPHIL # MANUAL DIFF 0.9 TH/MM3 (1.8-7.7); POLYS (SEG NEUTROPHILS) 48 % (16-70)
[2018-02-14 17:13] LABS: OVALOCYTES 2+ (NORMAL); TEARDROP RBCS 1+ (NORMAL)
[2018-02-14 17:21] LABS: ALBUMIN 2.6 GM/DL (3.4-5.0); ALKALINE PHOSPHATASE 193 U/L (45-117); BLOOD UREA NITROGEN 3 MG/DL (7-18); CALCIUM 7.8 MG/DL (8.5-10.1); CREATININE 0.73 MG/DL (0.60-1.30); GLOMERULAR FILTRATION RATE 147 ML/MIN (>89); GLUCOSE,RANDOM 72 MG/DL (74-106); TOTAL PROTEIN 6.6 GM/DL (6.4-8.2)
[2018-02-14 17:22] LABS: ALT (GPT) 41 U/L (12-78); AST (GOT) 48 U/L (15-37); BICARBONATE 24.5 MEQ/L (21.0-32.0); CHLORIDE 105 MEQ/L (98-107); SODIUM (NA) 139 MEQ/L (136-145); TOTAL BILIRUBIN ADULT LESS THAN 0.1 MG/DL (0.2-1.0)
[2018-02-14 20:00] VITALS: BP 104/64; PULSE 62; RESP 18; TEMP 98.3; O2SAT 99
[2018-02-14] MEDS: SULFAMETHOXAZOLE-TRIMETHOPRIM DS 800-160 MG TAB PO SCH (21:14)
[2018-02-15] VITALS: BP 102/63; PULSE 56; RESP 20; TEMP 98.4; O2SAT 95
[2018-02-15 03:44] VITALS: BP 106/64; PULSE 57; RESP 16; TEMP 98; O2SAT 100
[2018-02-15] MEDS: SULFAMETHOXAZOLE-TRIMETHOPRIM DS 800-160 MG TAB PO SCH ×2 (06:12→13:28)
--- NOTE | 2018-02-15 07:58 | HHI.PR ---
Subjective Remarks in no acute distress. resting comfortably with no sob or fever. no new complaints. d/w the RN. Objective Vitals Vital Signs Date Time Temp Pulse Resp B/P (MAP) Pulse Ox O2 Delivery O2 Flow Rate FiO2 02/15/18 03:44 98.0 57 16 106/64 (78) 100 02/15/18 00:00 98.4 56 20 102/63 (76) 95 02/14/18 20:00 98.3 62 18 104/64 (77) 99 02/14/18 15:42 97.8 47 20 105/59 (74) 96 02/14/18 12:32 97.4 60 20 102/69 (80) 100 02/14/18 08:16 98.3 61 16 102/51 (68) 100 I/O 02/14/18 02/14/18 02/14/18 02/15/18 02/15/18 02/15/18 07:00 15:00 23:00 07:00 15:00 23:00 Output Total 700 ml Balance -700 ml Output Urine Total 700 ml # Voids 10 1 # Bowel Movements 1 Result Diagram: 02/14/18 1539 02/14/18 [address] Angiography 02/10/18 1235 Signed Impressions: Service Date/Time: February 14:09 - CONCLUSION: 1. Negative for pulmonary embolus. There is mild peribronchial thickening and there is some ill-defined groundglass opacity at the lung bases, probably mild inflammatory change. Reji Alford MD Chest X-Ray 02/10/18 1229 Signed Impressions: Service Date/Time: February 12:59 - CONCLUSION: 1. No acute cardiopulmonary disease. Jer Zhou MD Objective Remarks GENERAL: This is a well-nourished, well-developed patient, in no apparent distress. CARDIOVASCULAR: Regular rate and regular rhythm without murmurs, gallops, or rubs. RESPIRATORY: Clear to auscultation. Breath sounds equal bilaterally. No wheezes , rales, or rhonchi. GASTROINTESTINAL: Abdomen soft, non-tender, nondistended. Normal, active bowel sounds MUSCULOSKELETAL: Extremities without clubbing, cyanosis, or edema. NEURO: Alert & Oriented x4 to person, place, time, situation. Moves all ext x4 Procedures None Medications and IVs Inpatient Medications Acetaminophen/ Hydrocodone Bitart ([place] 5-325 Mg) 1 tab Q4H PRN PO PAIN 3-5; Start 02/10/18 at 19:45 Acetaminophen/ Hydrocodone Bitart ([place] 10-325 Mg) 1 tab Q4H PRN PO PAIN 6-10 ; Start 02/10/18 at 19:45 Albuterol/ Ipratropium (Duoneb Neb) 1 ampule Q4HR NEB PRN NEB SOB/WHEEZING; Start 02/10/18 at 19:00 Azithromycin (Zithromax) 1,200 mg Q7D PO ; Start 02/21/18 at 09:00 Azithromycin 500 mg/Sodium Chloride 250 ml @ 250 mls/hr Q24H IV Last administered on 02/13/18at 20:29; Start 02/11/18 at 20:00; Stop 02/14/18 at 14:52 ; Status DC Bisacodyl (Dulcolax Supp) 10 mg DAILY PRN RECTAL SEVERE CONSITIPATION; Start at 16:45; Stop 02/13/18 at 07:34; Status DC Budesonide/ Formoterol Fumarate (Symbicort 160-4.5 Mcg Inh) 2 puff Q12HR INH Last administered on 02/14/18at 09:03; Start 02/10/18 at 21:00 Cefepime HCl 1000 mg/Sodium Chloride 100 ml @ 200 mls/hr Q12H IV Last administered on 02/11/18at 07:50; Start 02/10/18 at 20:00; Stop 02/11/18 at 18:58 ; Status DC Ceftriaxone Sodium 2000 mg/ Sodium Chloride 100 ml @ 200 mls/hr Q24H IV Last administered on 02/13/18at 23:43; Start 02/11/18 at 21:00; Stop 02/14/18 at 14:52 ; Status DC Enoxaparin Sodium (Lovenox Inj) 30 mg Q24H SQ Last administered on 02/14/18at 15 :59; Start 02/10/18 at 17:00 Fluconazole (Diflucan) 200 mg DAILY PO Last administered on 02/14/18at 09:02; Start 02/12/18 at 14:45; Stop 02/25/18 at 23:55 Guaifenesin (Mucinex Er) 600 mg BID PO Last administered on 02/11/18at 20:41; Start 02/10/18 at 21:00 Influenza Virus Vaccine (Flu (Quadrivalent) Vaccine Inj) 0.5 ml ONCE ONCE IM Last administered on 02/11/18at 10:24; Start 02/11/18 at 10:00; Stop 02/11/18 at 10:01; Status DC Lactulose (Lactulose Liq) 30 ml DAILY PRN PO SEVERE CONSITIPATION; Start at 16:45; Stop 02/13/18 at 07:34; Status DC Magnesium Hydroxide (Milk Of Magnesia Liq) 30 ml Q12H PRN PO Mild constipation ; Start 02/10/18 at 16:45 Naloxone HCl (Narcan Inj) 0.4 mg UNSCH PRN IV PUSH SEE LABEL COMMENTS; Start at 16:45 Nystatin (Mycostatin Liq) 5 ml QID SWISH-SWAL Last administered on 02/14/18at 21:14; Start 02/11/18 at 18:00 Pneumococcal Polyvalent Vaccine (Pneumovax-23 Inj) 25 mcg ONCE ONCE IM Last administered on 02/11/18at 10:22; Start 02/11/18 at 10:00; Stop 02/11/18 at 10:01 ; Status DC Potassium Chloride (KCl) 60 meq ONCE ONCE PO Last administered on 02/13/18at 09 :02; Start 02/13/18 at 07:45; Stop 02/13/18 at 07:46; Status DC Prochlorperazine Edisylate (Compazine Inj) 10 mg Q4H PRN IV PUSH NAUSEA/ VOMITING; Start 02/10/18 at 19:45 Senna/Docusate Sodium (Vicki-Colace) 1 tab BID PO Last administered on at 22:17; Start 02/10/18 at 21:00; Stop 02/13/18 at 07:34; Status DC Sennosides (Senokot) 17.2 mg Q12H PRN PO Moderate constipation; Start 02/10/18 at 16:45; Stop 02/13/18 at 07:34; Status DC Sodium Chloride (NS Flush) 2 ml BID IV FLUSH Last administered on 02/14/18at 21: 15; Start 02/10/18 at 21:00 Trimethoprim/ Sulfamethoxazole (Bactrim Ds 800-160 Mg) 2 tab Q8HR PO Last administered on 02/15/18at 06:12; Start 02/14/18 at 22:00; Stop 03/03/18 at 23:55 Trimethoprim/ Sulfamethoxazole 320 mg/Dextrose 520 ml @ 346.667 mls/hr ONCE ONCE IV Last administered on 02/10/18at 16:25; Start 02/10/18 at 15:45; Stop 07/21 at 17:14; Status DC Trimethoprim/ Sulfamethoxazole 430 mg/Dextrose 526.875 ml @ 351.25 mls/hr Q8H IV Last administered on 02/14/18at 09:03; Start 02/11/18 at 00:00; Stop at 14:52; Status DC A/P Problem List: (1) PNA (pneumonia) ICD Code: J18.9 - Pneumonia, unspecified organism (2) Bandemia ICD Code: D72.825 - Bandemia (3) HIV (human immunodeficiency virus infection) ICD Code: B20 - Human immunodeficiency virus [HIV] disease Status: Acute Assessment and Plan 1. Early PCP PNA vs other atypical PNA: Improving +immunocompromised/non-compliant w/ meds, CXR w/ no acute findings, CTA Pulm negative for PE, +peribronchial thickening and ground glass opacity at bases likely mild inflammatory change, continue on azithromycin, Bactrim- ID f/u appreciated an cleared for discharge. Continue Symbicort, Mucinex, DuoNeb prn. . 2. Bandemia: Continue treatment as an above 3. HIV: +non-compliant w/ meds x2 yrs. Last CD 4 85 on 09/06/07, however absolute CD4 count less than 20 on February 11, 2018, currently on Bactrim and Zithro Appreciate input from ID 4. Oral thrush: Improving Continue nystatin, Diflucan 200 mg daily 5. DVT Prophylaxis: Lovenox Discharge Planning dc home today pending CBC/ BMP. see med list. f/u; pcp and HIV clinic. d/w the patient and Manny Reynaga MD February 15, 2018 07:58
[2018-02-15 08:00] VITALS: BP 96/66; PULSE 59; RESP 20; TEMP 98.2; O2SAT 100
[2018-02-15] MEDS ORDERED: SULF1TAB23 PO (08:04)
[2018-02-15] MEDS: SODIUM CHLORIDE 0.9% FLUSH 10 ML FLUSH IV FLUSH SCH (09:00)
[2018-02-15] MEDS: NYSTATIN SUSP 500,000 U/5 ML CUP SWISH-SWAL SCH ×2 (09:58→13:28)
[2018-02-15] MEDS: guaiFENesin E.R. 600 MG TAB PO SCH (09:58)
[2018-02-15] MEDS: FLUCONAZOLE 200 MG TAB PO SCH (09:58)
[2018-02-15 10:42] LABS: AUTOMATED NEUTROPHIL # 0.6 TH/MM3 (1.8-7.7); BASOPHIL % 0.9 % (0.0-2.0); EOSINOPHIL # 0.1 TH/MM3 (0-0.4); EOSINOPHIL % 5.2 % (0.0-4.0); HEMATOCRIT 25.7 % (39.0-51.0); HEMOGLOBIN 8.6 GM/DL (13.0-17.0); LYMPH % 30.9 % (9.0-44.0); LYMPHOCYTE # 0.4 TH/MM3 (1.0-4.8); MEAN CELL VOLUME 90.5 FL (80.0-100.0); MEAN CORPUSCULAR HEMOGLOBIN 30.2 PG (27.0-34.0); MEAN CORPUSCULAR HGB CONC 33.4 % (32.0-36.0); MEAN PLATELET VOLUME 7.5 FL (7.0-11.0); MONO % 19.9 % (0.0-8.0); MONOCYTE # 0.3 TH/MM3 (0-0.9); NEUT % 43.1 % (16.0-70.0); PLATELET COUNT 387 TH/MM3 (150-450); RED BLOOD COUNT 2.84 MIL/MM3 (4.50-5.90); RED CELL DISTRIBUTION WIDTH 14.1 % (11.6-17.2); WHITE BLOOD COUNT 1.4 TH/MM3 (4.0-11.0)
[2018-02-15] MEDS: BUDESONIDE-FORMOTEROL 160/4.5 MCG INHALER INH SCH (10:54)
[2018-02-15 11:10] LABS: BANDS 10 % (0-6); LYMPHOCYTES 37 % (9-44); MONOCYTES 17 % (0-8); NEUTROPHIL # MANUAL DIFF 0.6 TH/MM3 (1.8-7.7); POLYS (SEG NEUTROPHILS) 32 % (16-70)
[2018-02-15 11:11] LABS: OVALOCYTES 1+ (NORMAL)
[2018-02-15 11:24] LABS: BICARBONATE 24.7 MEQ/L (21.0-32.0); CALCIUM 8.1 MG/DL (8.5-10.1); CREATININE 0.74 MG/DL (0.60-1.30)
[2018-02-15 12:36] VITALS: BP 108/67; PULSE 64; RESP 20; TEMP 98; O2SAT 100
[2018-02-15] MEDS ORDERED: POTASSIUM CHLORIDE 10 MEQ CONTROLLED RELEASE TAB PO ONE (13:15)
[2018-02-21] MEDS ORDERED: AZITHROMYCIN 600 MG TAB PO SCH (09:00)
== END 2018-02-15 14:50 | disposition home or self-care (01) | DRG 975 ==
LOC: NEPC 11:48 → NEDA 16:22 → NEDH 20:22 → NEPGCP 20:52 → N05B 02-14 13:23
PROVIDERS: ADMIT Internal Medicine; ATTEND Internal Medicine
DX: B20 Human immunodeficiency virus [HIV] disease (principal); J18.9 Pneumonia, unspecified organism; E46 Unspecified protein-calorie malnutrition; B37.0 Candidal stomatitis; I95.9 Hypotension, unspecified; Z68.1 Body mass index [BMI] 19.9 or less, adult; R00.0 Tachycardia, unspecified; Z87.891 Personal history of nicotine dependence; Z91.14 Patient's other noncompliance with medication regimen; Z91.19 Patient's noncompliance with other medical treatment and regimen; Z23 Encounter for immunization
CPT/HCPCS: 71045; 71275; 76937; 80048; 80053; 81001; 83605; 83615; 85007; 85027; 85610; 85730; 86355; 86357; 86359; 86360; 87040; 90686; 90732; 93005; 96360; 96361; J0456; J0692; J0696; J1650; J7030; J7050; J7060; Q2038; Q9967

== ENCOUNTER 2018-02-26 15:13 | Inpatient (IN) | payer OTHER ==
[~2018-02-26] VITALS: Ht 190.5 cm; Wt 51.6 kg
[~2018-02-26 15:13] MED LIST changes: +AZIT600T PO; +Budeson-Formot 160-4.5 Mcg Inh INH; +DIFL200T PO; +Nystatin Liq SWISH-SWAL; +SULF1TAB23 PO; +guaiFENesin ER PO
[2018-02-26] MEDS ORDERED: IOHEXOL 350 MG/ML 10 ML VIAL (for RAD DIAG) IVCONTRAST ONE (15:14)
[2018-02-26 15:15] VITALS: BP 109/76; PULSE 126; RESP 20; TEMP 98.8; O2SAT 100
[2018-02-26] MEDS ORDERED: SODIUM CHLOR 0.9% 1000 ML INJ 1,000 ML IV SCH (15:51)
--- NOTE | 2018-02-26 15:57 | PD ---
HPI Chief Complaint: Psychiatric Symptoms Time Seen by Provider: 15:25 Travel History International Travel<30 days: No Contact w/Intl Traveler<30days: No Traveled to known affect area: No History of Present Illness HPI The patient is a 37-year-old -[place] male who presents to the emergency department for "fidgeting "and irritability. The patient does have a history of HIV and was on antiviral therapy in [place], [place], prescribed by the health department. However, the patient moved back to [place], [place], to live with his mother approximately 6 months ago. The patient has not been on his antivirals for the last 6 months, states he was unable to get into the health department to be evaluated and treated. The patient was recently admitted to the hospital for pneumonia, was discharged home on antibiotics. The mother states the patient has not been eating over the last several days, has been irritable, not sleeping, and "fidgeting ". The patient states he has similar symptoms when he was started on antiviral therapy that lasted approximately 2 weeks and then self resolved. However, he has not had any of these symptoms for the last 6 months wobbly and off for the antiviral therapy. The patient states she has intermittent episodes where he will eat a lot, however, will have multiple episodes where he does not want to eat. The patient states he has not had an appetite for the last 2 days despite smoking marijuana yesterday. He denies any current headache, chest pain, shortness of breath, nausea, vomiting, or abdominal pain. PFSH Past Medical History Blood Disorders: No Cancer: No Cardiovascular Problems: Yes Chest Pain: Yes Diminished Hearing: No Endocrine: No Genitourinary: No Immune Disorder: Yes (HIV NOT TAKING MEDICATIONS) Musculoskeletal: No Neurologic: No Psychiatric: No Reproductive: No Respiratory: No Past Surgical History Surgical History: No Previous Surgery Social History Alcohol Use: No (occasion) Tobacco Use: Yes (black and mild on occasion) Substance Use: No Allergies-Medications (Allergen,Severity, Reaction): Coded Allergies: No Known Allergies (Verified Allergy, Unknown, 02/26/18) Reported Meds & Prescriptions Reported Meds & Active Scripts Active Sulfamethoxazole-Trimethoprim 800-160 Mg Tab 2 Tab PO Q8HR two tablets po every eight hours for eighteen days then one tablet po daily. Azithromycin 600 Mg Tab 1,200 Mg PO Q7D 30 Days [guaiFENesin ER] 600 MG Tabcr 600 Mg PO BID [Budeson-Formot 160-4.5 Mcg Inh] 60 PUFF Aero 2 Puff INH Q12HR [Nystatin Liq] 5 ML Susp 5 Ml SWISH-SWAL QID 10 Days Diflucan (Fluconazole) 200 Mg Tab 200 Mg PO DAILY 14 Days Review of Systems Except as stated in HPI: all other systems reviewed are Neg General / Constitutional: Positive: Weight Loss, No: Fever HENT: No: Headaches, Lightheadedness Cardiovascular: No: Chest Pain or Discomfort Respiratory: Positive: Cough, No: Shortness of Breath Gastrointestinal: Positive: Loss of Appetite, No: Nausea, Vomiting, Abdominal Pain Genitourinary: No: Dysuria Musculoskeletal: No: Weakness Neurologic: Positive: Other (Irritable and "fidgeting ") Physical Exam Narrative GENERAL: Awake, alert, 37-year-old male who appears his stated age and is in no acute respiratory distress. The patient does jerk his head to the left and right, unsure if he is responding to other stimuli. Cachectic. SKIN: Focused skin assessment warm/dry. Small dark erythematous areas throughout the body that are nonraised. HEAD: Atraumatic. Normocephalic. EYES: Pupils equal and round. 4 mm bilateral and reactive. ENT: No nasal bleeding or discharge. Slightly dry mucous membranes. NECK: Trachea midline. No JVD. CARDIOVASCULAR: Regular, tachycardic with a heart rate in the 120s. RESPIRATORY: No accessory muscle use. Clear to auscultation. Breath sounds equal bilaterally. GASTROINTESTINAL: Abdomen soft, non-tender, nondistended. MUSCULOSKELETAL: No obvious deformities. No clubbing. No cyanosis. No edema. NEUROLOGICAL: Awake and alert. No obvious cranial nerve deficits. Motor grossly within normal limits. Normal speech. Nonfocal. Oriented 4. Follows commands without difficulty. PSYCHIATRIC: Appropriate mood and affect; insight and judgment normal. Data Data Last Documented VS Vital Signs Date Time Temp Pulse Resp B/P (MAP) Pulse Ox O2 Delivery O2 Flow Rate FiO2 02/26/18 18:30 92 18 106/56 (73) 96 Room Air 02/26/18 15:15 98.8 Orders Orders Electrocardiogram (02/26/18 15:51) Complete Blood Count With Diff (02/26/18 15:51) Comprehensive Metabolic Panel (02/26/18 15:51) Creatine Kinase (Cpk) (02/26/18 15:51) Urinalysis - C+S If Indicated (02/26/18 15:51) Lactic Acid Sepsis Protocol (02/26/18 15:51) Blood Culture (02/26/18 15:51) Blood Glucose (02/26/18 15:51) Ecg Monitoring (02/26/18 15:51) Iv Access Insert/Monitor (02/26/18 15:51) Oximetry (02/26/18 15:51) Sodium Chloride 0.9% Flush (Ns Flush) (02/26/18 16:00) Sodium Chlor 0.9% 1000 Ml Inj (Ns 1000 M (02/26/18 15:51) Lorazepam Inj (Ativan Inj) (02/26/18 16:00) Ct Brain W & W/O Iv Contrast (02/26/18 ) Lorazepam Inj (Ativan Inj) (02/26/18 16:45) Sodium Chlor 0.9% 1000 Ml Inj (Ns 1000 M (02/26/18 17:15) Potassium Chloride (Kcl) (02/26/18 17:15) Iohexol 350 Inj (Omnipaque 350 Inj) (02/26/18 15:14) Chest, Single Ap (02/26/18 15:51) Admit To Inpatient (02/26/18 ) Vital Signs (Adult) Q4H (02/26/18 18:45) Activity Oob With Assistance (02/26/18 18:45) Intake + Output JASPAL.QSHIFT (02/26/18 18:45) Diet Regular Basic (02/26/18 Dinner) Sodium Chloride 0.9% Flush (Ns Flush) (02/26/18 18:45) Sodium Chloride 0.9% Flush (Ns Flush) (02/26/18 21:00) Acetaminophen (Tylenol) (02/26/18 18:45) Metoclopramide Inj (Reglan Inj) (02/26/18 18:45) Basic Metabolic Panel (Bmp) (02/27/18 06:00) Complete Blood Count With Diff (02/27/18 06:00) Naloxone Inj (Narcan Inj) (02/26/18 18:45) Docusate Sodium-Senna (Vicki-Colace) (02/26/18 21:00) Magnesium Hydroxide Liq (Milk Of Magnesi (02/26/18 18:45) Sennosides (Senokot) (02/26/18 18:45) Bisacodyl Supp (Dulcolax Supp) (02/26/18 18:45) Lactulose Liq (Lactulose Liq) (02/26/18 18:45) Inpatient Certification (02/26/18 ) Consult Infectious Disease (02/26/18 ) Lumbar Puncture (02/27/18 ) Vital Signs (Adult) .On admission (02/26/18 18:49) Notify Radiology (02/26/18 18:49) Diet Npo (02/26/18 Dinner) Prothrombin Time / Inr (Pt) (02/26/18 18:49) Act Partial Throm Time (Ptt) (02/26/18 18:49) Labs Laboratory Tests Test 02/26/18 16:00 02/26/18 18:20 White Blood Count 3.0 TH/MM3 Red Blood Count 3.46 MIL/MM3 Hemoglobin 10.4 GM/DL Hematocrit 32.6 % Mean Corpuscular Volume 94.3 FL Mean Corpuscular Hemoglobin 30.1 PG Mean Corpuscular Hemoglobin Concent 31.9 % Red Cell Distribution Width 15.8 % Platelet Count 389 TH/MM3 Mean Platelet Volume 7.0 FL CBC Comment AUTO DIFF Differential Total Cells Counted 100 Neutrophils % (Manual) 29 % Band Neutrophils % 22 % Lymphocytes % 17 % Monocytes % 21 % Eosinophils % 3 % Basophils % 3 % Neutrophils # (Manual) 1.7 TH/MM3 Metamyelocytes 4 % Myelocytes 1 % Differential Comment FINAL DIFF MANUAL Platelet Estimate HIGH Platelet Morphology Comment NORMAL Ovalocytes 1+ Blood Urea Nitrogen 30 MG/DL Creatinine 1.45 MG/DL Random Glucose 113 MG/DL Total Protein 8.7 GM/DL Albumin 4.1 GM/DL Calcium Level 9.0 MG/DL Alkaline Phosphatase 152 U/L Aspartate Amino Transf (AST/SGOT) 42 U/L Alanine Aminotransferase (ALT/SGPT) 60 U/L Total Bilirubin 0.6 MG/DL Sodium Level 148 MEQ/L Potassium Level 3.2 MEQ/L Chloride Level 112 MEQ/L Carbon Dioxide Level 22.6 MEQ/L Anion Gap 13 MEQ/L Estimat Glomerular Filtration Rate 67 ML/MIN Lactic Acid Level 2.3 mmol/L 1.3 mmol/L Total Creatine Kinase 232 U/L [facility] Medical Decision Making Medical Screen Exam Complete: Yes Emergency Medical Condition: Yes Medical Record Reviewed: Yes Interpretation(s) EKG reveals normal sinus rhythm with a rate of 90, nonspecific T-wave changes. Last Impressions Head CT 02/26/18 0000 Signed Impressions: CONCLUSION: 1. Negative CT Head with and without contrast. Laboratory Tests Test 02/26/18 16:00 White Blood Count 3.0 TH/MM3 Red Blood Count 3.46 MIL/MM3 Hemoglobin 10.4 GM/DL Hematocrit 32.6 % Mean Corpuscular Volume 94.3 FL Mean Corpuscular Hemoglobin 30.1 PG Mean Corpuscular Hemoglobin Concent 31.9 % Red Cell Distribution Width 15.8 % Platelet Count 389 TH/MM3 Mean Platelet Volume 7.0 FL CBC Comment AUTO DIFF Differential Total Cells Counted 100 Neutrophils % (Manual) 29 % Band Neutrophils % 22 % Lymphocytes % 17 % Monocytes % 21 % Eosinophils % 3 % Basophils % 3 % Neutrophils # (Manual) 1.7 TH/MM3 Metamyelocytes 4 % Myelocytes 1 % Differential Comment FINAL DIFF MANUAL Platelet Estimate HIGH Platelet Morphology Comment NORMAL Ovalocytes 1+ Blood Urea Nitrogen 30 MG/DL Creatinine 1.45 MG/DL Random Glucose 113 MG/DL Total Protein 8.7 GM/DL Albumin 4.1 GM/DL Calcium Level 9.0 MG/DL Alkaline Phosphatase 152 U/L Aspartate Amino Transf (AST/SGOT) 42 U/L Alanine Aminotransferase (ALT/SGPT) 60 U/L Total Bilirubin 0.6 MG/DL Sodium Level 148 MEQ/L Potassium Level 3.2 MEQ/L Chloride Level 112 MEQ/L Carbon Dioxide Level 22.6 MEQ/L Anion Gap 13 MEQ/L Estimat Glomerular Filtration Rate 67 ML/MIN Lactic Acid Level 2.3 mmol/L Total Creatine Kinase 232 U/L Differential Diagnosis Differential diagnosis includes encephalopathy, delirium, infectious process, infectious encephalopathy, medication side effect, substance abuse, electrolyte abnormality, dehydration. Narrative Course IV was established, labs are drawn and sent, and the patient was placed on cardiac telemetry monitoring and continuous pulse oximetry monitoring. The patient was administered 1 L of IV fluids. CT of the brain with and without contrast was ordered to rule out ring-enhancing lesion. I am unsure if the patient is having hallucinations/delusions from external stimuli that could be psychiatric versus possible infectious/metabolic encephalopathy secondary to HIV /AIDS. I did review the patient's EMR, he was evaluated by infectious disease on his last admission. His CD4 count at that time was less than 20. 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 The patient does have bandemia 22%. He also had bandemia previous admission that did improve with treatment. CT of the brain is negative, with and without contrast, no obvious tumors or ring-enhancing lesions. The patient appears to be having either visual or tactile hallucinations, unsure if this is infectious or psychiatric. The patient may benefit from evaluation possible lumbar puncture for CSF and then psychiatric evaluation. The patient is dehydrated, lactic acid is 2.3, sodium was 148, and creatinine is elevated. Therefore, the on-call medical service was paged for 23 hour observation. Physician Communication Physician Communication The on-call medical service was paged for 23 hour observation. I discussed the patient with Dr. Colbert who agrees with admission. Diagnosis Primary Impression: Dehydration Additional Impressions: Lactic acidosis Hallucinations, unspecified Bandemia Admitting Information Admitting Physician Requests: Observation Condition: Stable Warren Parra MD February 26, 2018 15:57
[2018-02-26] MEDS ORDERED: SODIUM CHLORIDE 0.9% FLUSH 10 ML FLUSH IV FLUSH PRN ×2 (16:00→18:45)
[2018-02-26] MEDS ORDERED: LORazepam 2 MG/ML VIAL IV PUSH ONE ×2 (16:00→16:45)
[2018-02-26 16:06] VITALS: O2SAT 98
[2018-02-26 16:14] LABS: HEMATOCRIT 32.6 % (39.0-51.0); HEMOGLOBIN 10.4 GM/DL (13.0-17.0); MEAN CELL VOLUME 94.3 FL (80.0-100.0); MEAN CORPUSCULAR HEMOGLOBIN 30.1 PG (27.0-34.0); MEAN CORPUSCULAR HGB CONC 31.9 % (32.0-36.0); PLATELET COUNT 389 TH/MM3 (150-450); RED BLOOD COUNT 3.46 MIL/MM3 (4.50-5.90); RED CELL DISTRIBUTION WIDTH 15.8 % (11.6-17.2)
[2018-02-26 16:34] LABS: ALBUMIN 4.1 GM/DL (3.4-5.0); ALT (GPT) 60 U/L (12-78); AST (GOT) 42 U/L (15-37); BICARBONATE 22.6 MEQ/L (21.0-32.0); BLOOD UREA NITROGEN 30 MG/DL (7-18); CHLORIDE 112 MEQ/L (98-107); CREATININE 1.45 MG/DL (0.60-1.30); GLOMERULAR FILTRATION RATE 67 ML/MIN (>89); GLUCOSE,RANDOM 113 MG/DL (74-106); SODIUM (NA) 148 MEQ/L (136-145)
[2018-02-26 16:36] LABS: LACTIC ACID SEPSIS PROTOCOL 2.3 mmol/L (0.4-2.0)
[2018-02-26 16:37] LABS: ALKALINE PHOSPHATASE 152 U/L (45-117); TOTAL BILIRUBIN ADULT 0.6 MG/DL (0.2-1.0); TOTAL PROTEIN 8.7 GM/DL (6.4-8.2)
[2018-02-26 16:50] LABS: BANDS 22 % (0-6); BASOPHILS 3 % (0-2); LYMPHOCYTES 17 % (9-44); METAMYELOCYTES 4 % (0-1); MONOCYTES 21 % (0-8); MYELOCYTES 1 % (0-0); NEUTROPHIL # MANUAL DIFF 1.7 TH/MM3 (1.8-7.7); POLYS (SEG NEUTROPHILS) 29 % (16-70)
[2018-02-26 16:51] LABS: OVALOCYTES 1+ (NORMAL)
[2018-02-26 17:00] VITALS: BP 96/63; PULSE 96; RESP 18; O2SAT 96
[2018-02-26] MEDS ORDERED: SODIUM CHLOR 0.9% 1000 ML INJ 1,000 ML IV ONE (17:15)
[2018-02-26] MEDS ORDERED: POTASSIUM CHLORIDE 20 MEQ CONTROLLED RELEASE TAB PO ONE (17:15)
--- NOTE | 2018-02-26 17:35 | RADRPT ---
EXAM DATE: 02/26/2018 5:26 PM EDT AGE/SEX: 37 years / Male INDICATIONS: Weakness, hasn't been taking HIV medications. CLINICAL DATA: This is the patient's initial encounter. Patient reports that signs and symptoms have been present for 1 day and indicates a pain score of 0/10. MEDICAL/SURGICAL HISTORY: HIV. Cardiovascular disease. None. RADIATION DOSE: 39.53 CTDI (mGy) ; Combined studies COMPARISON: None . TECHNIQUE: Axial images of the head were acquired without contrast and after intravenous administrat ion of 67 ml Omnipaque 350 (iohexol) nonionic water-soluble contrast as a single exam dose. Using automated exposure control and adjustment of the mA and/or kV according to patient size, radiation do se was kept as low as reasonably achievable to obtain optimal diagnostic quality images. FINDINGS: Cerebrum: The ventricles are normal for age. No evidence of midline shift, mass lesion, hemorrhage or acute infarction. No extraaxial fluid collections are seen. Posterior Fossa: The cerebellum and brainstem are intact. The 4th ventricle is midline. The cerebe llopontine angle is unremarkable. Extracranial: The visualized portion of the orbits is intact. Skull: The calvaria is intact. No evidence of skull fracture. Post Contrast: No abnormal areas of parenchymal or dural enhancement. No evidence of blood-brain ba rrier breakdown. CONCLUSION: 1. Negative CT Head with and without contrast. Electronically signed by: Pawan Carr MD 02/26/2018 5:33 PM EDT
[2018-02-26 18:30] VITALS: BP 106/56; PULSE 92; RESP 18; O2SAT 96
--- NOTE | 2018-02-26 18:42 | RADRPT ---
EXAM DATE: 02/26/2018 6:32 PM EDT AGE/SEX: 37 years / Male INDICATIONS: Cough. CLINICAL DATA: This is the patient's initial encounter. Patient reports that signs and symptoms have been present for 1 day and indicates a pain score of Nonresponsive. MEDICAL/SURGICAL HISTORY: HIV. Cardiovascular disease. None. COMPARISON: . FINDINGS: 2 portable supine frontal views of the chest show the heart to be normal in size. No pulmonary vascul ar engorgement. Lungs are clear. No infiltrate or effusion. Bony structures are unremarkable.. CONCLUSION: Negative examination. Electronically signed by: Pawan Carr MD 02/26/2018 6:41 PM EDT
[2018-02-26] MEDS ORDERED: LACTULOSE SYRUP 20 GM/30 ML CUP PO PRN (18:45)
[2018-02-26] MEDS ORDERED: METOCLOPRAMIDE HCL 10 MG/2 ML VIAL IV PUSH PRN (18:45)
[2018-02-26] MEDS ORDERED: BISACODYL 10 MG SUPP RECTAL PRN (18:45)
[2018-02-26] MEDS ORDERED: MAGNESIUM HYDROXIDE SUSP 30 ML CUP PO PRN (18:45)
[2018-02-26] MEDS ORDERED: ACETAMINOPHEN 325 MG TAB PO PRN (18:45)
[2018-02-26] MEDS ORDERED: SENNOSIDES 8.6 MG TAB PO PRN (18:45)
[2018-02-26] MEDS ORDERED: NALOXONE HCL 0.4 MG/ML AMP IV PUSH PRN (18:45)
[2018-02-26] MEDS ORDERED: SULFAMETHOX/TRIMETHOPRIM 160 MG/10 ML VIAL IV SCH (19:15)
--- NOTE | 2018-02-26 19:17 | HHI.HP ---
HPI Service [facility] Primary Care Physician No Primary Care Physician Admission Diagnosis HIV/AIDS, hallucinations, bandemia, acute kidney injury, dehydration Diagnoses: (1) Encephalopathy Diagnosis: Principal (2) Bandemia Diagnosis: Principal (3) BRYSON (acute kidney injury) Diagnosis: Principal (4) AIDS (acquired immune deficiency syndrome) Diagnosis: Principal (5) Oral thrush Diagnosis: Principal Travel History International Travel<30 Days: No Contact w/Intl Traveler <30 Da: No Traveled to Known Affected Are: No History of Present Illness This is a 37-year-old male with a PMH of HIV/AIDS (CD4 <20 on 02/11/18), Thrush and Noncompliance who was brought to the ER by Mother for AMS. Mother notes pt more confused and having visual/auditory hallucinations. Recent admit 02/10-02/14 for PNA and Bandemia, s/p eval by ID and tx w/ Bactrim/Rocephin/Zithro, d/c' d home on Bactrim/Zithro and Diflucan for thrush, unclear if pt taking medications. Pt unable to provide any history at this time as he received sedation for imaging. On arrival, BP 109/76, HR 126, O2 sat 100% on RA, Afebrile. WBC 3.0, previously 1.4 on 02/15/2018. Hemoglobin 10.4. Bands 22%, previously 21% on 02/14/2018. Creatinine 1.45, previously 0.74 on 02/15/2018. Lactic Acid 2.3. CXR negative. CT Head negative. IR consult for LP ordered. Review of Systems Except as stated in HPI: all other systems reviewed are Neg ROS: Unable to obtain secondary to AMS and lethargy per Past Family Social History Past Medical History PMH: HIV/AIDS (CD4 <20 on 02/11/18), Thrush and Noncompliance Past Surgical History PAST SURGICAL HISTORY: None Allergies: Coded Allergies: No Known Allergies (Verified Allergy, Unknown, 02/26/18) Family History PAST FAMILY HISTORY: Reviewed. No h/o DM or CAD Social History PAST SOCIAL HISTORY: Occasional alcohol. Smokes black and mild. Negative for drugs. Physical Exam Vital Signs Vital Signs Date Time Temp Pulse Resp B/P (MAP) Pulse Ox O2 Delivery O2 Flow Rate FiO2 02/26/18 18:30 92 18 106/56 (73) 96 Room Air 02/26/18 17:00 96 18 96/63 (74) 96 Room Air 02/26/18 16:06 98 Room Air 02/26/18 15:15 98.8 126 20 109/76 (87) 100 Physical Exam PE: GENERAL: Thin, chronically ill appearing, emaciated young black male in no acute distress. Lethargic after medication. HEENT: PERRLA, EOMI. No scleral icterus or conjunctival pallor. No lid lag or facial droop. CARDIOVASCULAR: Regular rate and rhythm. No obvious murmurs to auscultation. No chest tenderness to palpation. RESPIRATORY: No obvious rhonchi or wheezing. Clear to auscultation. Breath sounds equal bilaterally. GASTROINTESTINAL: Abdomen soft, non-tender, nondistended. BS normal. MUSCULOSKELETAL: Extremities without clubbing, cyanosis, or edema. No obvious deformities. NEUROLOGICAL: Lethargic, but arousable. No focal neurologic deficits. Moving both upper and lower extremities spontaneously. Laboratory Laboratory Tests Test 02/26/18 16:00 02/26/18 18:20 White Blood Count 3.0 Red Blood Count 3.46 Hemoglobin 10.4 Hematocrit 32.6 Mean Corpuscular Volume 94.3 Mean Corpuscular Hemoglobin 30.1 Mean Corpuscular Hemoglobin Concent 31.9 Red Cell Distribution Width 15.8 Platelet Count 389 Mean Platelet Volume 7.0 CBC Comment AUTO DIFF Differential Total Cells Counted 100 Neutrophils % (Manual) 29 Band Neutrophils % 22 Lymphocytes % 17 Monocytes % 21 Eosinophils % 3 Basophils % 3 Neutrophils # (Manual) 1.7 Metamyelocytes 4 Myelocytes 1 Differential Comment FINAL DIFF MANUAL Platelet Estimate HIGH Platelet Morphology Comment NORMAL Ovalocytes 1+ Blood Urea Nitrogen 30 Creatinine 1.45 Random Glucose 113 Total Protein 8.7 Albumin 4.1 Calcium Level 9.0 Alkaline Phosphatase 152 Aspartate Amino Transf (AST/SGOT) 42 Alanine Aminotransferase (ALT/SGPT) 60 Total Bilirubin 0.6 Sodium Level 148 Potassium Level 3.2 Chloride Level 112 Carbon Dioxide Level 22.6 Anion Gap 13 Estimat Glomerular Filtration Rate 67 Lactic Acid Level 2.3 1.3 Total Creatine Kinase 232 Date/Time Source Procedure Growth Status 02/26/18 16:00 Blood Peripheral Aerobic Blood Culture Pending Received 02/26/18 16:00 Blood Peripheral Anaerobic Blood Culture Pending Received Result Diagram: 02/26/18 1600 02/26/18 1600 Mert VTE Risk Assessment Flqauitai VTE Risk Assessment: No/Low Risk (score <= 1) Caprini Risk Assessment Model Point Value = 1 Point Value = 2 Point Value = 3 Point Value = 5 Age 41-60 Minor surgery BMI > 25 kg/m2 Swollen legs Varicose veins or History of unexplained or recurrent spontaneous Oral contraceptives or hormone replacement Sepsis (< 1 month) Serious lung disease, including pneumonia (< 1 month) Abnormal pulmonary function Acute myocardial infarction Congestive heart failure (< 1 month) History of inflammatory bowel disease Medical patient at bed rest Age 61-74 Arthroscopic surgery Major open surgery (> 45 min) Laparoscopic surgery (> 45 min) Malignancy Confined to bed (> 72 hours) Immobilizing plaster cast Central venous access Age >= 75 History of VTE Family history of VTE Factor V Leiden Prothrombin [id number] Lupus anticoagulant Anticardiolipin antibodies Elevated serum homocysteine Heparin-induced thrombocytopenia Other congenital or acquired thrombophilia Stroke (< 1 month) Elective arthroplasty Hip, pelvis, or leg fracture Acute spinal cord injury (< 1 month) Prophylaxis Regimen Total Risk Factor Score Risk Level Prophylaxis Regimen 0-1 Low Early ambulation 2 Moderate Order ONE of the following: *Sequential Compression Device (SCD) *Heparin 5000 units SQ BID 3-4 Higher Order ONE of the following medications: *Heparin 5000 units SQ TID *Enoxaparin/Lovenox 40 mg SQ daily (WT < 150 kg, CrCl > 30 mL/min) *Enoxaparin/Lovenox 30 mg SQ daily (WT < 150 kg, CrCl > 10-29 mL/min) *Enoxaparin/Lovenox 30 mg SQ BID (WT < 150 kg, CrCl > 30 mL/min) AND/OR *Sequential Compression Device (SCD) 5 or more Highest Order ONE of the following medications: *Heparin 5000 units SQ TID (Preferred with Epidurals) *Enoxaparin/Lovenox 40 mg SQ daily (WT < 150 kg, CrCl > 30 mL/min) *Enoxaparin/Lovenox 30 mg SQ daily (WT < 150 kg, CrCl > 10-29 mL/min) *Enoxaparin/Lovenox 30 mg SQ BID (WT < 150 kg, CrCl > 30 mL/min) AND *Sequential Compression Device (SCD) Assessment and Plan Problem List: (1) Encephalopathy ICD Code: G93.40 - Encephalopathy, unspecified (2) AIDS (acquired immune deficiency syndrome) ICD Code: B20 - Human immunodeficiency virus [HIV] disease (3) Bandemia ICD Code: D72.825 - Bandemia (4) Oral thrush ICD Code: B37.0 - Candidal stomatitis (5) BRYSON (acute kidney injury) ICD Code: N17.9 - Acute kidney failure, unspecified Assessment and Plan A/P: 1. Encephalopathy: acute onset of AMS w/ fidgeting/hallucinations reported by Mother, CT Head w/ no acute findings, images reviewed by me. Concern for possible encephalitis/NANOTECHNICIAN lesions in light of AIDS w/ CD4 20, IR Consult for LP ordered, CSF studies ordered. Neuro Checks. Check U/a and Urine Drug Screen. 2. AIDS: Off antiretroviral therapy due to non-compliance, recent admit for PNA/Bandemia, CD4 <20 on 02/11/18. CXR w/ no acute findings, images reviewed by me. Continue treatment w/ Bactrim/Zithro, Consult ID for further evaluation. 3. Bandemia: Bands 22, previously 21 on 02/14/18, 49 on 02/10/18, will continue w/ antibiotic therapy in light of immunocompromised state. Afebrile, repeat labs in am, follow up cultures. 4. BRYSON: Creatinine 1.45, previously 0.74 on 02/15/2018 IVF for hydration, repeat labs in a.m., check UA for possible UTI. 5. Thrush: Oral thrush on last admit, plan for Diflucan 200mg qd x2wks, will resume. 6. DVT Prophylaxis: SCD/Teds 7. Social work for d/c planning as needed. 8. Case discussed w/ day physician, labs/records/imaging reviewed by me. Physician Certification 2 Midnight Certification Type: Admission for Inpatient Services Order for Inpatient Services The services are ordered in accordance with Medicare regulations or non- Medicare payer requirements, as applicable. In the case of services not specified as inpatient-only, they are appropriately provided as inpatient services in accordance with the 2-midnight benchmark. Estimated LOS (days): 2 days is the estimated time the patient will need to remain in the hospital, assuming treatment plan goals are met and no additional complications. Post-Hospital Plan: Not yet determined Raisa Bueno MD February 26, 2018 19:17
[2018-02-26] MEDS ORDERED: AZITHROMYCIN 600 MG TAB PO SCH (21:00)
[2018-02-26 21:01] VITALS: BP 96/77; PULSE 82; RESP 18; TEMP 97.8; O2SAT 100
[2018-02-26] MEDS: SODIUM CHLORIDE 0.9% FLUSH 10 ML FLUSH IV FLUSH SCH (23:02)
[2018-02-26] MEDS: DOCUSATE SODIUM 50 MG/SENNA 8.6 MG TAB PO SCH (23:02)
[2018-02-26] MEDS: SULFAMETHOX IV SCH ×2 (23:02)
[2018-02-26] MEDS: WATE IV SCH ×2 (23:02)
[2018-02-26] MEDS: DEXTROSE 5% IV SCH ×2 (23:02)
[2018-02-26] MEDS: TRIMETHOPRIM IV SCH ×2 (23:02)
[2018-02-26 23:24] LABS: INTERNATIONAL NORMALIZED RATIO 1.1 RATIO
[2018-02-27] VITALS (7 sets, daily range): BP systolic 84–100; BP diastolic 54–63; PULSE 82–93; RESP 18–20; TEMP 97.2–98.9; O2SAT 86–100
[2018-02-27] MEDS: TRIMETHOPRIM IV SCH ×2 (05:09)
[2018-02-27] MEDS: DEXTROSE 5% IV SCH ×2 (05:09)
[2018-02-27] MEDS: WATE IV SCH ×2 (05:09)
[2018-02-27] MEDS: SULFAMETHOX IV SCH ×2 (05:09)
[2018-02-27] MEDS: DOCUSATE SODIUM 50 MG/SENNA 8.6 MG TAB PO SCH ×2 (07:57→22:23)
[2018-02-27] MEDS: FLUCONAZOLE 200 MG TAB PO SCH (07:57)
[2018-02-27] MEDS: SODIUM CHLORIDE 0.9% FLUSH 10 ML FLUSH IV FLUSH SCH ×2 (07:57→22:23)
[2018-02-27 08:42] LABS: BILIRUBIN, URINE NEG (NEG); BLOOD, URINE NEG (NEG); GLUCOSE,URINE NEG (NEG); KETONE, URINE 10 mg/dL (NEG); MUCUS URINE FEW /lpf (OCC); NITRITE,URINE NEG (NEG); PH, URINE 6.5 (5.0-8.5); SQUAMOUS EPITHELIAL CELL URINE <1 /hpf (0-5); URINE COLOR YELLOW (YELLW/STRAW); URINE LEUKOCYTE ESTERASE NEG (NEG)
--- NOTE | 2018-02-27 09:30 | PD.CONS ---
History of Present Illness Service Infectious disease Consult Requested By Dr Deepti Colbert Reason for Consult Evaluate patient with HIV, and mental status change Primary Care Physician No Primary Care Physician Diagnoses: History of Present Illness Patient seen and examined. Records reviewed. Patient is a 37-year-old male with known HIV, last CD4 count less than 20, recently hospitalized and treated for possible PCP pneumonia the second week of February. He was discharged to home, and he was living with his mother. Patient was apparently noted by the mom to be having behavior changes and was noted to be fidgety and very irritable. When I saw the patient this morning, he was awake and alert, and was upset that I am doing some mental status examination. He knows he is at [facility], and the year is 2018. He knows that the president is Latrell Vanessahelen. Denies any headache or any photophobia. Denies any nausea or vomiting, or any urinary complaints. He does not really know why he was taken to the hospital. He has not had any fever chills or sweats. Patient stated that since he was discharged he has not really gotten out and has stayed mostly at home. Patient stated also that he has been taking his medication as prescribed from the hospital when he was discharged. Since admission he has been afebrile. Chest x-ray is normal. CT of the head is negative. WBC is better and up to 3, it was 1.7 on his last admission. His CD4 count during his last admission was less than 20. He has not been taking any HAART, and has not really had any follow-up with an HIV provider since he was discharged from the hospital around February 14. Infectious disease consultation has been requested to assist with evaluation and treatment of this patient with HIV, and has some behavioral issues. Review of Systems Constitutional: DENIES: Fever, Chills, Night Sweats Eyes: DENIES: Eye pain, Photosensitivity Ears, nose, mouth, throat: DENIES: Nasal discharge, Oral lesions, Throat pain, Sinus Pain Respiratory: DENIES: Cough, Shortness of breath Cardiovascular: DENIES: Chest pain, Palpitations, Syncope Gastrointestinal: DENIES: Abdominal pain, Diarrhea, Nausea, Vomiting, Difficulty Swallowing Genitourinary: DENIES: Urgency, Dysuria Musculoskeletal: DENIES: Joint pain, Stiffness, Neck pain Integumentary: DENIES: Rash Neurologic: DENIES: Headache Psychiatric: COMPLAINS OF: Mood changes Past Family Social History Allergies: Coded Allergies: No Known Allergies (Verified Allergy, Unknown, 02/26/18) Past Medical History HIV, noncompliant Past Surgical History None Active Ordered Medications Current Medications Medications (Trade) Dose Ordered Sig/Brittny Route Start Time Stop Time Status Last Admin (NS Flush) 2 ml UNSCH PRN IV FLUSH 02/26/18 18:45 (NS Flush) 2 ml BID IV FLUSH 02/26/18 21:00 02/27/18 07:57 (Tylenol) 650 mg Q4H PRN PO 02/26/18 18:45 (Reglan Inj) 5 mg Q6H PRN IV PUSH 02/26/18 18:45 (Narcan Inj) 0.4 mg UNSCH PRN IV PUSH 02/26/18 18:45 (Vicki-Colace) 1 tab BID PO 02/26/18 21:00 02/27/18 07:57 (Milk Of Magnesia Liq) 30 ml Q12H PRN PO 02/26/18 18:45 (Senokot) 17.2 mg Q12H PRN PO 02/26/18 18:45 (Dulcolax Supp) 10 mg DAILY PRN RECTAL 02/26/18 18:45 (Lactulose Liq) 30 ml DAILY PRN PO 02/26/18 18:45 (Zithromax) 1,200 mg Q7D PO 02/26/18 21:00 02/26/18 23:02 (Diflucan) 200 mg DAILY PO 02/27/18 09:00 02/27/18 07:57 Trimethoprim/ Sulfamethoxazole 288 mg/Dextrose 518 ml @ 333 mls/hr Q8H IV 02/26/18 21:00 02/27/18 05:09 (Flu (Quadrivalent) Vaccine Inj) 0.5 ml ONCE ONCE IM 02/27/18 10:00 02/27/18 10:01 Family History Noncontributory Social History No smoking Previous alcohol abuse Denies illicit drug Physical Exam Vital Signs Vital Signs Date Time Temp Pulse Resp B/P (MAP) Pulse Ox O2 Delivery O2 Flow Rate FiO2 02/27/18 07:58 98.6 83 19 92/57 (69) 92 02/27/18 05:52 97.4 86 18 98/62 (74) 86 02/27/18 00:38 97.2 83 18 97/63 (74) 98 02/26/18 21:01 97.8 82 18 96/77 (83) 100 02/26/18 20:44 02/26/18 18:30 92 18 106/56 (73) 96 Room Air 02/26/18 17:00 96 18 96/63 (74) 96 Room Air 02/26/18 16:06 98 Room Air 02/26/18 15:15 98.8 126 20 109/76 (87) 100 Physical Exam GENERAL: Patient is a thin, well-developed male, awake and alert, not in respiratory distress. SKIN: Cool and dry. Has scattered hyperpigmented macules. No ecchymoses. HEAD: Atraumatic. Normocephalic. No temporal wasting, or tenderness. EYES: [place] conjunctiva. No petechia or hemorrhage. Pupils equal, round and reactive to light. Extraocular movements full and intact. No scleral icterus. No injection or drainage. EARS, NOSE AND THROAT: Nose without bleeding or purulent nasal discharge. No sinus tenderness. Mucous membranes pink and moist. No oral lesions noted. No exudate. No oral thrush. NECK: Trachea midline. Supple and not tender, no meningeal signs. No nuchal rigidity CARDIOVASCULAR: Regular rate and rhythm. No murmurs, rubs or gallops heard RESPIRATORY: Clear to auscultation. Breath sounds equal bilaterally. No rales , wheezing or rhonchi ABDOMEN: Soft, non-tender, nondistended. Bowel sounds present and normoactive. No guarding. No rebound. No organomegaly. EXTREMITIES: No clubbing, cyanosis, or edema.No joint effusion, has good ROM. No calf tenderness. Well perfused and warm. NEUROLOGICAL: Awake and alert. Cranial nerves grossly intact. Motor grossly within normal limits. PSYCHIATRIC: Irritable with my line of questioning, but answered all of them and he is cooperative LINE: No evidence of infection Laboratory Laboratory Tests Test 02/26/18 16:00 02/26/18 18:20 02/26/18 22:43 02/27/18 08:10 White Blood Count 3.0 Red Blood Count 3.46 Hemoglobin 10.4 Hematocrit 32.6 Mean Corpuscular Volume 94.3 Mean Corpuscular Hemoglobin 30.1 Mean Corpuscular Hemoglobin Concent 31.9 Red Cell Distribution Width 15.8 Platelet Count 389 Mean Platelet Volume 7.0 CBC Comment AUTO DIFF Differential Total Cells Counted 100 Neutrophils % (Manual) 29 Band Neutrophils % 22 Lymphocytes % 17 Monocytes % 21 Eosinophils % 3 Basophils % 3 Neutrophils # (Manual) 1.7 Metamyelocytes 4 Myelocytes 1 Differential Comment FINAL DIFF MANUAL Platelet Estimate HIGH Platelet Morphology Comment NORMAL Ovalocytes 1+ Blood Urea Nitrogen 30 Creatinine 1.45 Random Glucose 113 Total Protein 8.7 Albumin 4.1 Calcium Level 9.0 Alkaline Phosphatase 152 Aspartate Amino Transf (AST/SGOT) 42 Alanine Aminotransferase (ALT/SGPT) 60 Total Bilirubin 0.6 Sodium Level 148 Potassium Level 3.2 Chloride Level 112 Carbon Dioxide Level 22.6 Anion Gap 13 Estimat Glomerular Filtration Rate 67 Lactic Acid Level 2.3 1.3 Total Creatine Kinase 232 Prothrombin Time 11.0 Prothromb Time International Ratio 1.1 Activated Partial Thromboplast Time 36.6 Urine Color YELLOW Urine Turbidity CLEAR Urine pH 6.5 Urine Specific [place] GREATER THAN 1.050 Urine Protein 30 Urine Glucose (UA) NEG Urine Ketones 10 Urine Occult Blood NEG Urine Nitrite NEG Urine Bilirubin NEG Urine Urobilinogen LESS THAN 2.0 Urine Leukocyte Esterase NEG Urine RBC 2 Urine WBC 2 Urine Squamous Epithelial Cells <1 Urine Mucus FEW Microscopic Urinalysis Comment CATH-CULT NOT IND Date/Time Source Procedure Growth Status 02/26/18 16:00 Blood Peripheral Aerobic Blood Culture Pending Received 02/26/18 16:00 Blood Peripheral Anaerobic Blood Culture Pending Received Result Diagram: 02/26/18 1600 02/26/18 1600 Imaging RADIOLOGY STUDIES/FILMS REVIEWED Chest X-Ray 02/26/18 1551 Signed Impressions: CONCLUSION: Negative examination. Head CT 02/26/18 0000 Signed Impressions: CONCLUSION: 1. Negative CT Head with and without contrast. Assessment and Plan Assessment and Plan IMPRESSION HIV, has very low CD4 counts <20 On Rx for PCP, CXR now clear Altered behavior, fidgety and irritable RECOMMENDATION Agree with MRI brain Continue Bactrim - change to po and complete Rx till 03/03 Serum crypto Ag Await MRI study Monitor progress and decide on need for further work-up I will follow along with you Thank you for this consultation Discussed Condition With D/W Rula Mcguire MD February 27, 2018 09:30
[2018-02-27] MEDS ORDERED: GADODIAMIDE PF 287 MG/ML 5 ML VIAL (for RAD MRI) IVCONTRAST ONE (09:39)
[2018-02-27] MEDS ORDERED: INFLUENZA VIRUS VACCINE (QUADRIVALENT) 0.5 ML SYR IM ONE (10:00)
--- NOTE | 2018-02-27 10:05 | RADRPT ---
EXAM DATE: 02/27/2018 9:56 AM EDT AGE/SEX: 37 years / Male INDICATIONS: Altered mental status. CLINICAL DATA: This is the patient's initial encounter. Patient reports that signs and symptoms have been present for 1 day and indicates a pain score of 1/10. MEDICAL/SURGICAL HISTORY: HIV. None. COMPARISON: [facility], CT BRAIN W & W/O CONTRAST, 02/26/2018. . TECHNIQUE: Multiplanar, multisequence examination of the brain was performed without and with 14 ml O mniscan (gadodiamide) contrast as a single exam dose. FINDINGS: Cerebrum: The ventricles are normal for age. No evidence of midline shift, mass lesion, hemorrhage or acute infarction. No extraaxial fluid collections are seen. The pituitary gland and suprasellar cistern are normal in configuration. White Matter: No significant signal abnormalities are seen in the white matter. Posterior Fossa: The cerebellum and brainstem are intact. The 4th ventricle is midline. The cerebel lopontine angle is unremarkable. The cerebellar tonsils are normal in position. Diffusion Imaging: No focal areas of restricted diffusion are seen. No evidence of acute infarction . Extracranial: The visualized portions of the orbits are unremarkable. There is some chronic sinus di sease in the ethmoid sinuses bilaterally and right maxillary sinus. Post Contrast: No abnormal areas of parenchymal or dural enhancement. No evidence of blood-brain ba rrier breakdown. CONCLUSION: 1. Unremarkable MRI of the brain. 2. Evidence of chronic sinus disease. Electronically signed by: Kt Pierce MD 02/27/2018 10:04 AM EDT
[2018-02-27 11:15] LABS: HEMATOCRIT 29.4 % (39.0-51.0); HEMOGLOBIN 9.6 GM/DL (13.0-17.0); MEAN CELL VOLUME 93.3 FL (80.0-100.0); MEAN CORPUSCULAR HEMOGLOBIN 30.3 PG (27.0-34.0); MEAN CORPUSCULAR HGB CONC 32.5 % (32.0-36.0); MEAN PLATELET VOLUME 7.1 FL (7.0-11.0); PLATELET COUNT 309 TH/MM3 (150-450); RED BLOOD COUNT 3.16 MIL/MM3 (4.50-5.90); RED CELL DISTRIBUTION WIDTH 15.5 % (11.6-17.2)
[2018-02-27 11:44] LABS: BICARBONATE 22.8 MEQ/L (21.0-32.0); CALCIUM 8.1 MG/DL (8.5-10.1); CREATININE 0.99 MG/DL (0.60-1.30)
[2018-02-27 12:04] LABS: BANDS 24 % (0-6); BASOPHILS 1 % (0-2); LYMPHOCYTES 16 % (9-44); MONOCYTES 19 % (0-8); NEUTROPHIL # MANUAL DIFF 1.1 TH/MM3 (1.8-7.7); POLYS (SEG NEUTROPHILS) 31 % (16-70)
[2018-02-27 12:05] LABS: OVALOCYTES 1+ (NORMAL)
--- NOTE | 2018-02-27 13:33 | EKG ---
Date Performed: 02/26/2018 Time Performed: 16:53:58 PTAGE: 37 years EKG: Sinus rhythm SHORT TX INTERVAL OTHERWISE WITHIN NORMAL LIMITS FOR AGE BORDERLINE ECG Compared to PREVIOUS TRACING , no significant change. PREVIOUS TRACIN02/10/2018 12.52 DOCTOR: Zane Mcneal Interpretating Date/Time 02/27/2018 13:31:09
--- NOTE | 2018-02-27 13:34 | HHI.PR ---
Subjective Remarks Patient denies hallucinations or problem with confusions. He states he was living in [place] but has returned to this area. Objective Vitals Vital Signs Date Time Temp Pulse Resp B/P (MAP) Pulse Ox O2 Delivery O2 Flow Rate FiO2 02/27/18 12:11 98.4 93 20 93/57 (69) 100 02/27/18 07:58 98.6 83 19 92/57 (69) 92 02/27/18 05:52 97.4 86 18 98/62 (74) 86 02/27/18 00:38 97.2 83 18 97/63 (74) 98 02/26/18 21:01 97.8 82 18 96/77 (83) 100 02/26/18 20:44 02/26/18 18:30 92 18 106/56 (73) 96 Room Air 02/26/18 17:00 96 18 96/63 (74) 96 Room Air 02/26/18 16:06 98 Room Air 02/26/18 15:15 98.8 126 20 109/76 (87) 100 I/O 02/26/18 02/26/18 02/26/18 02/27/18 02/27/18 02/27/18 06:59 14:59 22:59 06:59 14:59 22:59 Intake Total 2000 ml 518 ml Balance 2000 ml 518 ml Intake IV Total 2000 ml 518 ml # Voids 2 # Bowel Movements 1 2 Result Diagram: 02/27/18 1100 02/27/18 1100 Objective Remarks GENERAL: Cachectic looking male, in no apparent distress. CARDIOVASCULAR: Normal rate and regular rhythm without murmurs, gallops, or rubs. RESPIRATORY: Good respiratory efforts. Breath sounds equal and clear to auscultation bilaterally. GASTROINTESTINAL: Abdomen soft, non-tender, non-distended. Normal active bowel sounds MUSCULOSKELETAL: Extremities without cyanosis, or edema. NEURO: Alert & Oriented x4 to person, place, time, situation. Moves all ext x4 PSYCH: Appropriate mood and affect. A/P Problem List: (1) Encephalopathy ICD Code: G93.40 - Encephalopathy, unspecified (2) AIDS (acquired immune deficiency syndrome) ICD Code: B20 - Human immunodeficiency virus [HIV] disease (3) Bandemia ICD Code: D72.825 - Bandemia (4) Oral thrush ICD Code: B37.0 - Candidal stomatitis (5) BRYSON (acute kidney injury) ICD Code: N17.9 - Acute kidney failure, unspecified Assessment and Plan 37-year-old male with HIV/AIDS brought in by his mother for reports of hallucinations. Encephalopathy: acute onset of AMS w/ fidgeting/hallucinations reported by Mother, CT Head w/ no acute findings, MRI negative. Concern for possible encephalitis/CAMPUS PRESIDENT lesions in light of AIDS w/ CD4 20, IR Consulted for LP, CSF studies ordered. Neuro Checks. -Symptoms resolved. Could be related to illicit drug use. He was positive for marijuana on tox screen. HIV/AIDS: Off antiretroviral therapy due to non-compliance, recent admit for PNA/Bandemia, CD4 <20 on 02/11/18. Continue treatment w/ Bactrim -Appreciate ID following. Continue Bactrim - complete Rx till 03/03 - Serum crypto Ag pending BRYSON: Creatinine 1.45, previously 0.74 on 02/15/2018 IVF for hydration -Resolved. May DC IV fluid. Thrush: Oral thrush on last admit, plan for Diflucan 200mg qd x2wks DVT Prophylaxis: SCD/Teds Anastacia Pop MD February 27, 2018 13:34
[2018-02-27] MEDS: SULFAMETHOXAZOLE-TRIMETHOPRIM DS 800-160 MG TAB PO SCH ×2 (14:00→22:23)
[2018-02-27] MEDS ORDERED: Vancomycin Consult Pharmacy 1 EA OTHER SCH (15:15)
[2018-02-27] MEDS ORDERED: VANCOMYCIN INJ 1,000 MG in SODIUM CHLOR 0.9% 250 ML INJ 250 ML IV SCH (15:15)
[2018-02-27] MEDS: VANCOMYCIN 1,500 MG/NS 500 ML IV SCH ×2 (17:23)
[2018-02-28 00:55] VITALS: BP 95/55; PULSE 81; RESP 18; TEMP 99.8; O2SAT 98
[2018-02-28] MEDS: VANCOMYCIN 1,500 MG/NS 500 ML IV SCH ×2 (04:14)
[2018-02-28 04:54] VITALS: BP 94/59; PULSE 88; RESP 18; TEMP 98.3; O2SAT 100
[2018-02-28] MEDS: SULFAMETHOXAZOLE-TRIMETHOPRIM DS 800-160 MG TAB PO SCH ×3 (06:27→22:15)
[2018-02-28 07:33] LABS: HEMATOCRIT 26.5 % (39.0-51.0); HEMOGLOBIN 8.8 GM/DL (13.0-17.0); MEAN CELL VOLUME 92.9 FL (80.0-100.0); MEAN CORPUSCULAR HEMOGLOBIN 30.9 PG (27.0-34.0); MEAN CORPUSCULAR HGB CONC 33.3 % (32.0-36.0); MEAN PLATELET VOLUME 7.7 FL (7.0-11.0); PLATELET COUNT 248 TH/MM3 (150-450); RED BLOOD COUNT 2.85 MIL/MM3 (4.50-5.90); RED CELL DISTRIBUTION WIDTH 15.6 % (11.6-17.2); WHITE BLOOD COUNT 1.7 TH/MM3 (4.0-11.0)
[2018-02-28 07:58] LABS: BICARBONATE 24.6 MEQ/L (21.0-32.0); CALCIUM 7.6 MG/DL (8.5-10.1); CREATININE 0.76 MG/DL (0.60-1.30)
[2018-02-28 09:03] VITALS: BP 92/56; PULSE 85; RESP 16; TEMP 98.3; O2SAT 99
--- NOTE | 2018-02-28 10:35 | HHI.IDPN ---
Subjective Subjective Remarks Patient is a 37-year-old male with known HIV, last CD4 count less than 20, recently hospitalized and treated for possible PCP pneumonia the second week of February. He was discharged to home, and he was living with his mother. Patient was apparently noted by the mom to be having behavior changes and was noted to be fidgety and very irritable. When I saw the patient this morning, he was awake and alert, and was upset that I am doing some mental status examination. He knows he is at [facility], and the year is 2017. He knows that the president is Latrell Delgado. Denies any headache or any photophobia. Denies any nausea or vomiting, or any urinary complaints. He does not really know why he was taken to the hospital. He has not had any fever chills or sweats. Patient stated that since he was discharged he has not really gotten out and has stayed mostly at home. Patient stated also that he has been taking his medication as prescribed from the hospital when he was discharged. Since admission he has been afebrile. Chest x-ray is normal. CT of the head is negative. WBC is better and up to 3, it was 1.7 on his last admission. His CD4 count during his last admission was less than 20. He has not been taking any HAART, and has not really had any follow-up with an HIV provider since he was discharged from the hospital around February 14. Infectious disease consultation has been requested to assist with evaluation and treatment of this patient with HIV, and has some behavioral issues. Notes reviewed Afebrile Mental status seems ok Has 2 BC on admission with GPC No new complaints Antibiotics Current Medications Medications (Trade) Dose Ordered Sig/Brittny Route Start Time Stop Time Status Last Admin (NS Flush) 2 ml UNSCH PRN IV FLUSH 02/26/18 18:45 (NS Flush) 2 ml BID IV FLUSH 02/26/18 21:00 02/27/18 22:23 (Tylenol) 650 mg Q4H PRN PO 02/26/18 18:45 (Reglan Inj) 5 mg Q6H PRN IV PUSH 02/26/18 18:45 (Narcan Inj) 0.4 mg UNSCH PRN IV PUSH 02/26/18 18:45 (Vicki-Colace) 1 tab BID PO 02/26/18 21:00 02/27/18 07:57 (Milk Of Magnesia Liq) 30 ml Q12H PRN PO 02/26/18 18:45 (Senokot) 17.2 mg Q12H PRN PO 02/26/18 18:45 (Dulcolax Supp) 10 mg DAILY PRN RECTAL 02/26/18 18:45 (Lactulose Liq) 30 ml DAILY PRN PO 02/26/18 18:45 (Zithromax) 1,200 mg Q7D PO 02/26/18 21:00 02/26/18 23:02 (Diflucan) 200 mg DAILY PO 02/27/18 09:00 02/27/18 07:57 (Bactrim Ds 800-160 Mg) 2 tab Q8HR PO 02/27/18 14:00 03/03/18 23:00 02/28/18 06:27 Pharmacy Profile Note 0 ml @ 0 mls/hr UNSCH OTHER 02/27/18 15:15 Vancomycin HCl 1500 mg/Sodium Chloride 515 ml @ 257.5 mls/ hr Q12H IV 02/27/18 17:00 02/28/18 04:14 ([facility] Ordered Lab Info) SPECIFIC LAB TO BE DRAWN:VA... ONCE ONCE .XX 03/01/18 04:45 03/01/18 04:46 Lines No evidence of infection Past Medical History HIV Allergies: Coded Allergies: No Known Allergies (Verified Allergy, Unknown, 02/26/18) Objective . Vital Signs Date Time Temp Pulse Resp B/P (MAP) Pulse Ox O2 Delivery O2 Flow Rate FiO2 02/28/18 09:03 98.3 85 16 92/56 (68) 99 02/28/18 04:54 98.3 88 18 94/59 (71) 100 02/28/18 00:55 99.8 81 18 95/55 (68) 98 02/27/18 20:44 88 100/59 (73) 02/27/18 20:00 98.4 82 18 84/54 (64) 100 02/27/18 15:47 98.9 86 20 95/57 (70) 100 02/27/18 12:11 98.4 93 20 93/57 (69) 100 . Laboratory Tests Test 02/26/18 16:00 02/27/18 11:00 02/28/18 06:23 White Blood Count 3.0 TH/MM3 2.0 TH/MM3 1.7 TH/MM3 Red Blood Count 3.46 MIL/MM3 3.16 MIL/MM3 2.85 MIL/MM3 Hemoglobin 10.4 GM/DL 9.6 GM/DL 8.8 GM/DL Hematocrit 32.6 % 29.4 % 26.5 % Mean Corpuscular Volume 94.3 FL 93.3 FL 92.9 FL Mean Corpuscular Hemoglobin 30.1 PG 30.3 PG 30.9 PG Mean Corpuscular Hemoglobin Concent 31.9 % 32.5 % 33.3 % Red Cell Distribution Width 15.8 % 15.5 % 15.6 % Platelet Count 389 TH/MM3 309 TH/MM3 248 TH/MM3 Mean Platelet Volume 7.0 FL 7.1 FL 7.7 FL CBC Comment AUTO DIFF AUTO DIFF Differential Total Cells Counted 100 100 Neutrophils % (Manual) 29 % 31 % Band Neutrophils % 22 % 24 % Lymphocytes % 17 % 16 % Monocytes % 21 % 19 % Eosinophils % 3 % 9 % Basophils % 3 % 1 % Neutrophils # (Manual) 1.7 TH/MM3 1.1 TH/MM3 Metamyelocytes 4 % Myelocytes 1 % Differential Comment FINAL DIFF MANUAL FINAL DIFF MANUAL Platelet Estimate HIGH NORMAL Platelet Morphology Comment NORMAL NORMAL Ovalocytes 1+ 1+ Laboratory Tests Test 02/26/18 16:00 02/26/18 18:20 02/27/18 11:00 02/28/18 06:23 Blood Urea Nitrogen 30 MG/DL 21 MG/DL 10 MG/DL Creatinine 1.45 MG/DL 0.99 MG/DL 0.76 MG/DL Random Glucose 113 MG/DL 72 MG/DL 91 MG/DL Total Protein 8.7 GM/DL Albumin 4.1 GM/DL Calcium Level 9.0 MG/DL 8.1 MG/DL 7.6 MG/DL Alkaline Phosphatase 152 U/L Aspartate Amino Transf (AST/SGOT) 42 U/L Alanine Aminotransferase (ALT/SGPT) 60 U/L Total Bilirubin 0.6 MG/DL Sodium Level 148 MEQ/L 143 MEQ/L 139 MEQ/L Potassium Level 3.2 MEQ/L 3.3 MEQ/L 3.6 MEQ/L Chloride Level 112 MEQ/L 110 MEQ/L 107 MEQ/L Carbon Dioxide Level 22.6 MEQ/L 22.8 MEQ/L 24.6 MEQ/L Anion Gap 13 MEQ/L 10 MEQ/L 7 MEQ/L Estimat Glomerular Filtration Rate 67 ML/MIN 104 ML/MIN 141 ML/MIN Lactic Acid Level 2.3 mmol/L 1.3 mmol/L Total Creatine Kinase 232 U/L Microbiology Date/Time Source Procedure Growth Status 02/26/18 16:00 Blood Peripheral Aerobic Blood Culture - Preliminary Gram Positive Cocci Resulted 02/26/18 16:00 Anaerobic Blood Culture - Preliminary Staphylococcus Aureus Resulted 02/26/18 15:55 Blood Peripheral Aerobic Blood Culture - Preliminary Gram Positive Cocci Resulted 02/26/18 15:55 Anaerobic Blood Culture - Preliminary Gram Positive Cocci Resulted Imaging Last Impressions Brain MRI 02/27/18 0000 Signed Impressions: CONCLUSION: 1. Unremarkable MRI of the brain. 2. Evidence of chronic sinus disease. Chest X-Ray 02/26/18 1551 Signed Impressions: CONCLUSION: Negative examination. Head CT 02/26/18 0000 Signed Impressions: CONCLUSION: 1. Negative CT Head with and without contrast. Physical Exam GENERAL: Patient is a thin, well-developed male, awake and alert, NAD SKIN: Cool and dry. Has scattered hyperpigmented macules. No ecchymoses. HEAD: Atraumatic. Normocephalic. No temporal wasting, or tenderness. EYES: [place] conjunctiva. No petechia or hemorrhage. Pupils equal, round and reactive to light. Extraocular movements full and intact. No scleral icterus. No injection or drainage. EARS, NOSE AND THROAT: Nose without bleeding or purulent nasal discharge. No sinus tenderness. Mucous membranes pink and moist. No oral lesions noted. NECK: Trachea midline. Supple and not tender, no meningeal signs. No nuchal rigidity CARDIOVASCULAR: Regular rate and rhythm. No murmurs, rubs or gallops heard RESPIRATORY: Clear to auscultation. Breath sounds equal bilaterally. No rales , wheezing or rhonchi ABDOMEN: Soft, non-tender, nondistended. Bowel sounds present and normoactive. No guarding. No rebound. No organomegaly. EXTREMITIES: No clubbing, cyanosis, or edema.No joint effusion, has good ROM. No calf tenderness. Well perfused and warm. NEUROLOGICAL: Non-focal PSYCHIATRIC: cooperative LINE: No evidence of infection Assessment & Plan Remarks IMPRESSION HIV, has very low CD4 counts <20 (+) BC with GPC, ?real, ?source On Rx for PCP, CXR now clear Altered behavior, fidgety and irritable RECOMMENDATION Continue Bactrim - change to po and complete Rx till 03/03 Serum crypto Ag Repeat 2 BC today Continue IV Vanco Monitor progress and decide on need for further work-up Rula Kennedy MD February 28, 2018 10:35
[2018-02-28] MEDS: FLUCONAZOLE 200 MG TAB PO SCH (10:46)
[2018-02-28] MEDS: SODIUM CHLORIDE 0.9% FLUSH 10 ML FLUSH IV FLUSH SCH ×2 (10:47→22:15)
[2018-02-28] MEDS: DOCUSATE SODIUM 50 MG/SENNA 8.6 MG TAB PO SCH ×2 (10:47→22:16)
--- NOTE | 2018-02-28 11:24 | HHI.PR ---
Subjective Remarks Patient reports he is feeling okay. Not really willing to participate with interval history and exam. Objective Vitals Vital Signs Date Time Temp Pulse Resp B/P (MAP) Pulse Ox O2 Delivery O2 Flow Rate FiO2 02/28/18 09:03 98.3 85 16 92/56 (68) 99 02/28/18 04:54 98.3 88 18 94/59 (71) 100 02/28/18 00:55 99.8 81 18 95/55 (68) 98 02/27/18 20:44 88 100/59 (73) 02/27/18 20:00 98.4 82 18 84/54 (64) 100 02/27/18 15:47 98.9 86 20 95/57 (70) 100 02/27/18 12:11 98.4 93 20 93/57 (69) 100 I/O 02/27/18 02/27/18 02/27/18 02/28/18 02/28/18 02/28/18 07:00 15:00 23:00 07:00 15:00 23:00 Intake Total 2578 ml Balance 2578 ml Intake Oral 1580 ml Oral Supplement 480 ml IV Total 518 ml # Voids 2 # Bowel Movements 2 1 Result Diagram: 02/28/1862202/28/18622 Objective Remarks GENERAL: Cachectic looking male, in no apparent distress. CARDIOVASCULAR: Normal rate and regular rhythm without murmurs, gallops, or rubs. RESPIRATORY: Good respiratory efforts. Breath sounds equal and clear to auscultation bilaterally. GASTROINTESTINAL: Abdomen soft, non-tender, non-distended. Normal active bowel sounds MUSCULOSKELETAL: Extremities without cyanosis, or edema. NEURO: Alert & Oriented x4 to person, place, time, situation. Moves all ext x4 PSYCH: Mood is flat. A/P Problem List: (1) Encephalopathy ICD Code: G93.40 - Encephalopathy, unspecified (2) AIDS (acquired immune deficiency syndrome) ICD Code: B20 - Human immunodeficiency virus [HIV] disease (3) Bandemia ICD Code: D72.825 - Bandemia (4) Oral thrush ICD Code: B37.0 - Candidal stomatitis (5) BRYSON (acute kidney injury) ICD Code: N17.9 - Acute kidney failure, unspecified Assessment and Plan 37-year-old male with HIV/AIDS brought in by his mother for reports of hallucinations. Encephalopathy: acute onset of AMS w/ fidgeting/hallucinations reported by Mother, CT Head w/ no acute findings, MRI negative. Concern for possible encephalitis/[employer] lesions in light of AIDS w/ CD4 20, IR Consulted for LP, CSF studies ordered. Neuro Checks. -Symptoms resolved. Could be related to illicit drug use. He was positive for marijuana on tox screen. HIV/AIDS: Off antiretroviral therapy due to non-compliance, recent admit for PNA/Bandemia, CD4 <20 on 02/11/18. Continue treatment w/ Bactrim -Appreciate ID following. Continue Bactrim - complete Rx till 03/03 - Serum crypto Ag pending Bacteremia: GPC. ?contaminant, ?source - ID following. On Vancomycin currently. Repeat blood cultures today per ID. BRYSON: Creatinine 1.45, previously 0.74 on 02/15/2018 IVF for hydration -Resolved with IV fluid. Thrush: Oral thrush on last admit, plan for Diflucan 200mg qd x2wks DVT Prophylaxis: SCD/Teds Anastacia Pop MD February 28, 2018 11:24
[2018-02-28 12:00] VITALS: BP 91/55; PULSE 75; RESP 18; TEMP 98.1; O2SAT 99
[2018-02-28] MEDS: VANCOMYCIN INJ 2,000 MG in SODIUM CHLORID 0.9% 500 ML INJ 500 ML IV SCH (14:55)
[2018-02-28 16:00] VITALS: BP 94/68; PULSE 76; RESP 18; TEMP 98.4; O2SAT 99
[2018-02-28 20:00] VITALS: BP 95/61; PULSE 81; RESP 20; TEMP 97.1; O2SAT 99
[2018-03-01] VITALS: BP 101/61; PULSE 87; RESP 20; TEMP 97.8; O2SAT 99
[2018-03-01] MEDS: VANCOMYCIN INJ 2,000 MG in SODIUM CHLORID 0.9% 500 ML INJ 500 ML IV SCH ×2 (02:19→14:03)
[2018-03-01 04:00] VITALS: BP 95/60; PULSE 81; RESP 20; TEMP 98.2; O2SAT 99
[2018-03-01] MEDS ORDERED: PHARMACY ORDERED LAB ONE (04:45)
[2018-03-01] MEDS: SULFAMETHOXAZOLE-TRIMETHOPRIM DS 800-160 MG TAB PO SCH ×3 (06:04→21:07)
[2018-03-01 08:00] VITALS: BP 101/55; PULSE 72; RESP 20; TEMP 98.4; O2SAT 100
[2018-03-01] MEDS: SODIUM CHLORIDE 0.9% FLUSH 10 ML FLUSH IV FLUSH SCH ×2 (08:08→21:04)
[2018-03-01] MEDS: FLUCONAZOLE 200 MG TAB PO SCH (08:08)
[2018-03-01] MEDS: DOCUSATE SODIUM 50 MG/SENNA 8.6 MG TAB PO SCH ×2 (08:08→21:00)
--- NOTE | 2018-03-01 11:09 | HHI.PR ---
Subjective Remarks Patient refused LP. States he is doing okay. Objective Vitals Vital Signs Date Time Temp Pulse Resp B/P (MAP) Pulse Ox O2 Delivery O2 Flow Rate FiO2 03/01/18 04:00 98.2 81 20 95/60 (72) 99 03/01/18 00:00 97.8 87 20 101/61 (74) 99 02/28/18 20:00 97.1 81 20 95/61 (72) 99 02/28/18 16:00 98.4 76 18 94/68 (77) 99 02/28/18 12:00 98.1 75 18 91/55 (67) 99 I/O 02/28/18 02/28/18 02/28/18 03/01/18 03/01/18 03/01/18 07:00 15:00 23:00 07:00 15:00 23:00 Intake Total 240 ml Output Total 600 ml 700 ml Balance -600 ml -460 ml Intake Oral 240 ml Output Urine Total 600 ml 700 ml # Bowel Movements 2 Result Diagram: 02/28/1862202/28/18622 Objective Remarks GENERAL: Cachectic looking male, in no apparent distress. CARDIOVASCULAR: Normal rate and regular rhythm without murmurs, gallops, or rubs. RESPIRATORY: Good respiratory efforts. Breath sounds equal and clear to auscultation bilaterally. GASTROINTESTINAL: Abdomen soft, non-tender, non-distended. Normal active bowel sounds MUSCULOSKELETAL: Extremities without cyanosis, or edema. NEURO: Alert & Oriented x4 to person, place, time, situation. Moves all ext x4 PSYCH: Mood is flat. A/P Problem List: (1) Encephalopathy ICD Code: G93.40 - Encephalopathy, unspecified (2) AIDS (acquired immune deficiency syndrome) ICD Code: B20 - Human immunodeficiency virus [HIV] disease (3) Bandemia ICD Code: D72.825 - Bandemia (4) Oral thrush ICD Code: B37.0 - Candidal stomatitis (5) BRYSON (acute kidney injury) ICD Code: N17.9 - Acute kidney failure, unspecified Assessment and Plan 37-year-old male with HIV/AIDS brought in by his mother for reports of hallucinations. Encephalopathy: acute onset of AMS w/ fidgeting/hallucinations reported by Mother, CT Head w/ no acute findings, MRI negative. Concern for possible encephalitis/[employer] lesions in light of AIDS w/ CD4 20, IR Consulted for LP but patient refused. Neuro status seems to be back at baseline. -Symptoms resolved. Could be related to illicit drug use. He was positive for marijuana on tox screen. HIV/AIDS: Off antiretroviral therapy due to non-compliance, recent admit for PNA/Bandemia, CD4 <20 on 02/11/18. Continue treatment w/ Bactrim -Appreciate ID following. Continue Bactrim - complete Rx till 03/03 - Serum crypto Ag pending. Patient refused LP Bacteremia: GPC. ?contaminant, ?source - ID following. On Vancomycin currently. Repeat blood cultures pending. BRYSON: Creatinine 1.45, previously 0.74 on 02/15/2018 IVF for hydration -Resolved with IV fluid. Thrush: Oral thrush on last admit, plan for Diflucan 200mg qd x2wks DVT Prophylaxis: SCD/Teds Anastacia Pop MD March 01, 2018 11:09
--- NOTE | 2018-03-01 11:20 | HHI.IDPN ---
Subjective Subjective Remarks Patient is a 37-year-old male with known HIV, last CD4 count less than 20, recently hospitalized and treated for possible PCP pneumonia the second week of February. He was discharged to home, and he was living with his mother. Patient was apparently noted by the mom to be having behavior changes and was noted to be fidgety and very irritable. When I saw the patient this morning, he was awake and alert, and was upset that I am doing some mental status examination. He knows he is at [facility], and the year is 2017. He knows that the president is Latrell Delgado. Denies any headache or any photophobia. Denies any nausea or vomiting, or any urinary complaints. He does not really know why he was taken to the hospital. He has not had any fever chills or sweats. Patient stated that since he was discharged he has not really gotten out and has stayed mostly at home. Patient stated also that he has been taking his medication as prescribed from the hospital when he was discharged. Since admission he has been afebrile. Chest x-ray is normal. CT of the head is negative. WBC is better and up to 3, it was 1.7 on his last admission. His CD4 count during his last admission was less than 20. He has not been taking any HAART, and has not really had any follow-up with an HIV provider since he was discharged from the hospital around February 14. Infectious disease consultation has been requested to assist with evaluation and treatment of this patient with HIV, and has some behavioral issues. Notes reviewed Afebrile Refused LP Brain MRI negative, no meningeal enhancement One BC with Strep and Staph aureus Second BC with Strep Repeat BC negative so far Tox screen (+) marijuana Antibiotics Current Medications Medications (Trade) Dose Ordered Sig/Brittny Route Start Time Stop Time Status Last Admin (NS Flush) 2 ml UNSCH PRN IV FLUSH 02/26/18 18:45 (NS Flush) 2 ml BID IV FLUSH 02/26/18 21:00 02/28/18 22:15 (Tylenol) 650 mg Q4H PRN PO 02/26/18 18:45 (Reglan Inj) 5 mg Q6H PRN IV PUSH 02/26/18 18:45 (Narcan Inj) 0.4 mg UNSCH PRN IV PUSH 02/26/18 18:45 (Vicki-Colace) 1 tab BID PO 02/26/18 21:00 02/28/18 10:47 (Milk Of Magnesia Liq) 30 ml Q12H PRN PO 02/26/18 18:45 (Senokot) 17.2 mg Q12H PRN PO 02/26/18 18:45 (Dulcolax Supp) 10 mg DAILY PRN RECTAL 02/26/18 18:45 (Lactulose Liq) 30 ml DAILY PRN PO 02/26/18 18:45 (Zithromax) 1,200 mg Q7D PO 02/26/18 21:00 02/26/18 23:02 (Diflucan) 200 mg DAILY PO 02/27/18 09:00 03/01/18 08:08 (Bactrim Ds 800-160 Mg) 2 tab Q8HR PO 02/27/18 14:00 03/03/18 23:00 03/01/18 06:04 Pharmacy Profile Note 0 ml @ 0 mls/hr UNSCH OTHER 02/27/18 15:15 Vancomycin HCl 2000 mg/Sodium Chloride 520 ml @ 250 mls/hr Q12H IV 02/28/18 14:00 03/01/18 02:19 [facility] Ordered Lab Info) SPECIFIC LAB TO BE ... ONCE ONCE .XX 03/02/18 01:45 03/02/18 01:46 Lines No evidence of infection Past Medical History HIV Allergies: Coded Allergies: No Known Allergies (Verified Allergy, Unknown, 02/26/18) Objective . Vital Signs Date Time Temp Pulse Resp B/P (MAP) Pulse Ox O2 Delivery O2 Flow Rate FiO2 03/01/18 08:00 98.4 72 20 101/55 (70) 100 03/01/18 04:00 98.2 81 20 95/60 (72) 99 03/01/18 00:00 97.8 87 20 101/61 (74) 99 02/28/18 20:00 97.1 81 20 95/61 (72) 99 02/28/18 16:00 98.4 76 18 94/68 (77) 99 02/28/18 12:00 98.1 75 18 91/55 (67) 99 . Laboratory Tests Test 02/28/18 06:23 White Blood Count 1.7 TH/MM3 Red Blood Count 2.85 MIL/MM3 Hemoglobin 8.8 GM/DL Hematocrit 26.5 % Mean Corpuscular Volume 92.9 FL Mean Corpuscular Hemoglobin 30.9 PG Mean Corpuscular Hemoglobin Concent 33.3 % Red Cell Distribution Width 15.6 % Platelet Count 248 TH/MM3 Mean Platelet Volume 7.7 FL Laboratory Tests Test 02/28/18 06:23 Blood Urea Nitrogen 10 MG/DL Creatinine 0.76 MG/DL Random Glucose 91 MG/DL Calcium Level 7.6 MG/DL Sodium Level 139 MEQ/L Potassium Level 3.6 MEQ/L Chloride Level 107 MEQ/L Carbon Dioxide Level 24.6 MEQ/L Anion Gap 7 MEQ/L Estimat Glomerular Filtration Rate 141 ML/MIN Microbiology Date/Time Source Procedure Growth Status 03/01/18 06:35 Blood Peripheral Aerobic Blood Culture Pending Received 03/01/18 06:35 Blood Peripheral Anaerobic Blood Culture Pending Received 02/28/18 19:58 Blood Peripheral Aerobic Blood Culture - Preliminary NO GROWTH IN 1 DAY Resulted 02/28/18 19:58 Blood Peripheral Anaerobic Blood Culture - Preliminary NO GROWTH IN 1 DAY Resulted 02/28/18 11:42 Blood Peripheral Aerobic Blood Culture - Preliminary NO GROWTH IN 1 DAY Resulted 02/28/18 11:42 Blood Peripheral Anaerobic Blood Culture - Preliminary NO GROWTH IN 1 DAY Resulted 02/26/18 16:00 Blood Peripheral Aerobic Blood Culture - Final Viridans Streptococcus Grp Complete 02/26/18 16:00 Anaerobic Blood Culture - Final Staphylococcus Aureus Complete 02/26/18 15:55 Blood Peripheral Aerobic Blood Culture - Preliminary Streptococcus Species Resulted 02/26/18 15:55 Anaerobic Blood Culture - Preliminary Streptococcus Species Resulted Imaging Last Impressions Brain MRI 02/27/18 0000 Signed Impressions: CONCLUSION: 1. Unremarkable MRI of the brain. 2. Evidence of chronic sinus disease. Chest X-Ray 02/26/18 1551 Signed Impressions: CONCLUSION: Negative examination. Head CT 02/26/18 0000 Signed Impressions: CONCLUSION: 1. Negative CT Head with and without contrast. Physical Exam GENERAL: Patient is a thin, well-developed male, awake and alert, NAD SKIN: Cool and dry. Has scattered hyperpigmented macules. No ecchymoses. HEAD: Atraumatic. Normocephalic. No temporal wasting, or tenderness. EYES: [place] conjunctiva. No petechia or hemorrhage. Pupils equal, round and reactive to light. Extraocular movements full and intact. No scleral icterus. No injection or drainage. EARS, NOSE AND THROAT: Nose without bleeding or purulent nasal discharge. No sinus tenderness. Mucous membranes pink and moist. No oral lesions noted. NECK: Trachea midline. Supple and not tender, no meningeal signs. No nuchal rigidity CARDIOVASCULAR: Regular rate and rhythm. No murmurs, rubs or gallops heard RESPIRATORY: Clear to auscultation. Breath sounds equal bilaterally. No rales , wheezing or rhonchi ABDOMEN: Soft, non-tender, nondistended. Bowel sounds present and normoactive. No guarding. No rebound. No organomegaly. EXTREMITIES: No clubbing, cyanosis, or edema.No joint effusion, has good ROM. No calf tenderness. Well perfused and warm. NEUROLOGICAL: Non-focal PSYCHIATRIC: cooperative LINE: No evidence of infection Assessment & Plan Remarks IMPRESSION HIV, has very low CD4 counts <20 (+) BC with GPC, ?real, ?source On Rx for PCP, CXR now clear Altered behavior, fidgety and irritable RECOMMENDATION Continue Bactrim - change to po and complete Rx till 03/03 Serum crypto Ag Follow repeat BC Continue IV Vanco Monitor progress and decide on need for further work-up Rula Kennedy MD March 01, 2018 11:20
[2018-03-01 12:00] VITALS: BP 104/57; PULSE 81; RESP 19; TEMP 98.6; O2SAT 100
[2018-03-01 16:00] VITALS: BP 97/52; PULSE 74; RESP 19; TEMP 98.5; O2SAT 100
[2018-03-01 20:00] VITALS: BP 109/60; PULSE 66; RESP 18; TEMP 98.3; O2SAT 100
[2018-03-02] VITALS: BP 106/67; PULSE 78; RESP 16; TEMP 97.1; O2SAT 100
[2018-03-02] MEDS ORDERED: PHARMACY ORDERED LAB ONE (01:45)
[2018-03-02] MEDS: VANCOMYCIN INJ 2,000 MG in SODIUM CHLORID 0.9% 500 ML INJ 500 ML IV SCH (02:06)
[2018-03-02 04:00] VITALS: BP 98/61; PULSE 76; RESP 14; TEMP 98.4; O2SAT 100
[2018-03-02] MEDS: SULFAMETHOXAZOLE-TRIMETHOPRIM DS 800-160 MG TAB PO SCH ×3 (05:00→21:08)
[2018-03-02 08:00] VITALS: BP 106/64; PULSE 71; RESP 18; TEMP 98.5; O2SAT 100
[2018-03-02 08:27] LABS: AUTOMATED NEUTROPHIL # 0.7 TH/MM3 (1.8-7.7); BASOPHIL % 0.8 % (0.0-2.0); EOSINOPHIL # 0.1 TH/MM3 (0-0.4); EOSINOPHIL % 8.4 % (0.0-4.0); HEMATOCRIT 27.1 % (39.0-51.0); HEMOGLOBIN 8.9 GM/DL (13.0-17.0); LYMPH % 30.1 % (9.0-44.0); LYMPHOCYTE # 0.5 TH/MM3 (1.0-4.8); MEAN CELL VOLUME 93.3 FL (80.0-100.0); MEAN CORPUSCULAR HEMOGLOBIN 30.7 PG (27.0-34.0); MEAN PLATELET VOLUME 7.8 FL (7.0-11.0); MONO % 19.4 % (0.0-8.0); MONOCYTE # 0.3 TH/MM3 (0-0.9); NEUT % 41.3 % (16.0-70.0); PLATELET COUNT 254 TH/MM3 (150-450); RED CELL DISTRIBUTION WIDTH 15.1 % (11.6-17.2); WHITE BLOOD COUNT 1.7 TH/MM3 (4.0-11.0)
[2018-03-02] MEDS: FLUCONAZOLE 200 MG TAB PO SCH (08:46)
[2018-03-02] MEDS: SODIUM CHLORIDE 0.9% FLUSH 10 ML FLUSH IV FLUSH SCH ×2 (08:48→21:09)
[2018-03-02 08:56] LABS: BICARBONATE 27.2 MEQ/L (21.0-32.0); CALCIUM 8.3 MG/DL (8.5-10.1); CREATININE 0.56 MG/DL (0.60-1.30)
[2018-03-02] MEDS: DOCUSATE SODIUM 50 MG/SENNA 8.6 MG TAB PO SCH ×2 (09:00→21:00)
[2018-03-02 09:50] LABS: BANDS 9 % (0-6); BASOPHILS 1 % (0-2); LYMPHOCYTES 30 % (9-44); MONOCYTES 5 % (0-8); NEUTROPHIL # MANUAL DIFF 0.9 TH/MM3 (1.8-7.7); POLYS (SEG NEUTROPHILS) 44 % (16-70)
[2018-03-02 09:51] LABS: ACANTHOCYTES OCC (NORMAL); KERATOCYTES OCC (NORMAL); OVALOCYTES 1+ (NORMAL)
--- NOTE | 2018-03-02 11:52 | HHI.IDPN ---
Subjective Subjective Remarks Patient is a 37-year-old male with known HIV, last CD4 count less than 20, recently hospitalized and treated for possible PCP pneumonia the second week of February. He was discharged to home, and he was living with his mother. Patient was apparently noted by the mom to be having behavior changes and was noted to be fidgety and very irritable. When I saw the patient this morning, he was awake and alert, and was upset that I am doing some mental status examination. He knows he is at [facility], and the year is 2018. He knows that the president is Latrell Delgado. Denies any headache or any photophobia. Denies any nausea or vomiting, or any urinary complaints. He does not really know why he was taken to the hospital. He has not had any fever chills or sweats. Patient stated that since he was discharged he has not really gotten out and has stayed mostly at home. Patient stated also that he has been taking his medication as prescribed from the hospital when he was discharged. Since admission he has been afebrile. Chest x-ray is normal. CT of the head is negative. WBC is better and up to 3, it was 1.7 on his last admission. His CD4 count during his last admission was less than 20. He has not been taking any HAART, and has not really had any follow-up with an HIV provider since he was discharged from the hospital around February 14. Infectious disease consultation has been requested to assist with evaluation and treatment of this patient with HIV, and has some behavioral issues. Notes reviewed Afebrile Mental status seems ok Patient shows some irritation when I ask questions Has 2 BC on admission with different organisms growing Repeat BC negative No new complaints Antibiotics Current Medications Medications (Trade) Dose Ordered Sig/Brittny Route Start Time Stop Time Status Last Admin (NS Flush) 2 ml UNSCH PRN IV FLUSH 02/26/18 18:45 (NS Flush) 2 ml BID IV FLUSH 02/26/18 21:00 03/02/18 08:48 (Tylenol) 650 mg Q4H PRN PO 02/26/18 18:45 (Reglan Inj) 5 mg Q6H PRN IV PUSH 02/26/18 18:45 (Narcan Inj) 0.4 mg UNSCH PRN IV PUSH 02/26/18 18:45 (Vicki-Colace) 1 tab BID PO 02/26/18 21:00 02/28/18 10:47 (Milk Of Magnesia Liq) 30 ml Q12H PRN PO 02/26/18 18:45 (Senokot) 17.2 mg Q12H PRN PO 02/26/18 18:45 (Dulcolax Supp) 10 mg DAILY PRN RECTAL 02/26/18 18:45 (Lactulose Liq) 30 ml DAILY PRN PO 02/26/18 18:45 (Zithromax) 1,200 mg Q7D PO 02/26/18 21:00 02/26/18 23:02 (Diflucan) 200 mg DAILY PO 02/27/18 09:00 03/02/18 08:46 (Bactrim Ds 800-160 Mg) 2 tab Q8HR PO 02/27/18 14:00 03/03/18 23:00 03/02/18 05:00 Pharmacy Profile Note 0 ml @ 0 mls/hr UNSCH OTHER 02/27/18 15:15 Vancomycin HCl 2000 mg/Sodium Chloride 520 ml @ 250 mls/hr Q12H IV 02/28/18 14:00 Future Hold 03/02/18 02:06 Lines No evidence of infection Past Medical History HIV Allergies: Coded Allergies: No Known Allergies (Verified Allergy, Unknown, 02/26/18) Objective . Vital Signs Date Time Temp Pulse Resp B/P (MAP) Pulse Ox O2 Delivery O2 Flow Rate FiO2 03/02/18 08:00 98.5 71 18 106/64 (78) 100 03/02/18 04:00 98.4 76 14 98/61 (73) 100 03/02/18 00:00 97.1 78 16 106/67 (80) 100 03/01/18 20:00 98.3 66 18 109/60 (76) 100 03/01/18 16:00 98.5 74 19 97/52 (67) 100 03/01/18 12:00 98.6 81 19 104/57 (73) 100 . Laboratory Tests Test 03/02/18 07:13 White Blood Count 1.7 TH/MM3 Red Blood Count 2.90 MIL/MM3 Hemoglobin 8.9 GM/DL Hematocrit 27.1 % Mean Corpuscular Volume 93.3 FL Mean Corpuscular Hemoglobin 30.7 PG Mean Corpuscular Hemoglobin Concent 33.0 % Red Cell Distribution Width 15.1 % Platelet Count 254 TH/MM3 Mean Platelet Volume 7.8 FL Neutrophils (%) (Auto) 41.3 % Lymphocytes (%) (Auto) 30.1 % Monocytes (%) (Auto) 19.4 % Eosinophils (%) (Auto) 8.4 % Basophils (%) (Auto) 0.8 % Neutrophils # (Auto) 0.7 TH/MM3 Lymphocytes # (Auto) 0.5 TH/MM3 Monocytes # (Auto) 0.3 TH/MM3 Eosinophils # (Auto) 0.1 TH/MM3 Basophils # (Auto) 0.0 TH/MM3 CBC Comment AUTO DIFF Differential Total Cells Counted 100 Neutrophils % (Manual) 44 % Band Neutrophils % 9 % Lymphocytes % 30 % Monocytes % 5 % Eosinophils % 11 % Basophils % 1 % Neutrophils # (Manual) 0.9 TH/MM3 Differential Comment FINAL DIFF MANUAL Platelet Estimate NORMAL Platelet Morphology Comment NORMAL Ovalocytes 1+ Acanthocytes OCC Keratocytes OCC Laboratory Tests Test 03/02/18 07:13 Blood Urea Nitrogen 6 MG/DL Creatinine 0.56 MG/DL Random Glucose 85 MG/DL Calcium Level 8.3 MG/DL Sodium Level 142 MEQ/L Potassium Level 3.9 MEQ/L Chloride Level 108 MEQ/L Carbon Dioxide Level 27.2 MEQ/L Anion Gap 7 MEQ/L Estimat Glomerular Filtration Rate 200 ML/MIN Microbiology Date/Time Source Procedure Growth Status 03/01/18 06:35 Blood Peripheral Aerobic Blood Culture - Preliminary NO GROWTH IN 1 DAY Resulted 03/01/18 06:35 Blood Peripheral Anaerobic Blood Culture - Preliminary NO GROWTH IN 1 DAY Resulted 02/28/18 19:58 Blood Peripheral Aerobic Blood Culture - Preliminary NO GROWTH IN 2 DAYS Resulted 02/28/18 19:58 Blood Peripheral Anaerobic Blood Culture - Preliminary NO GROWTH IN 2 DAYS Resulted 02/28/18 11:42 Blood Peripheral Aerobic Blood Culture - Preliminary NO GROWTH IN 2 DAYS Resulted 02/28/18 11:42 Blood Peripheral Anaerobic Blood Culture - Preliminary NO GROWTH IN 2 DAYS Resulted Imaging Last Impressions Brain MRI 02/27/18 0000 Signed Impressions: CONCLUSION: 1. Unremarkable MRI of the brain. 2. Evidence of chronic sinus disease. Chest X-Ray 02/26/18 1551 Signed Impressions: CONCLUSION: Negative examination. Head CT 02/26/18 0000 Signed Impressions: CONCLUSION: 1. Negative CT Head with and without contrast. Physical Exam GENERAL: Patient is a thin, well-developed male, awake and alert, NAD SKIN: Cool and dry. Has scattered hyperpigmented macules. No ecchymoses. HEAD: Atraumatic. Normocephalic. No temporal wasting, or tenderness. EYES: [place] conjunctiva. No petechia or hemorrhage. Pupils equal, round and reactive to light. Extraocular movements full and intact. No scleral icterus. No injection or drainage. EARS, NOSE AND THROAT: Nose without bleeding or purulent nasal discharge. No sinus tenderness. Mucous membranes pink and moist. No oral lesions noted. NECK: Trachea midline. Supple and not tender, no meningeal signs. No nuchal rigidity CARDIOVASCULAR: Regular rate and rhythm. No murmurs, rubs or gallops heard RESPIRATORY: Clear to auscultation. Breath sounds equal bilaterally. No rales , wheezing or rhonchi ABDOMEN: Soft, non-tender, nondistended. Bowel sounds present and normoactive. No guarding. No rebound. No organomegaly. EXTREMITIES: No clubbing, cyanosis, or edema.No joint effusion, has good ROM. No calf tenderness. Well perfused and warm. NEUROLOGICAL: Non-focal PSYCHIATRIC: cooperative LINE: No evidence of infection Assessment & Plan Remarks IMPRESSION HIV, has very low CD4 counts <20 (+) BC with different organims, looks more contaminant - repeat BC negative On Rx for PCP, CXR now clear Altered behavior, fidgety and irritable RECOMMENDATION Continue Bactrim - change to po and complete Rx till 03/03 Continue Zithromax for prophylaxis Stop IV vanco Give Augmentin x 7 days Should be ok for D/C in next day or 2 if repeat BC negative Rula Kennedy MD March 02, 2018 11:52
[2018-03-02 11:53] VITALS: BP 105/63; PULSE 75; RESP 16; TEMP 98.4; O2SAT 100
--- NOTE | 2018-03-02 15:21 | HHI.PR ---
Subjective Remarks Patient reports he is feeling okay. He has no new complaints. Objective Vitals Vital Signs Date Time Temp Pulse Resp B/P (MAP) Pulse Ox O2 Delivery O2 Flow Rate FiO2 03/02/18 11:53 98.4 75 16 105/63 (77) 100 03/02/18 08:00 98.5 71 18 106/64 (78) 100 03/02/18 04:00 98.4 76 14 98/61 (73) 100 03/02/18 00:00 97.1 78 16 106/67 (80) 100 03/01/18 20:00 98.3 66 18 109/60 (76) 100 03/01/18 16:00 98.5 74 19 97/52 (67) 100 I/O 03/01/18 03/01/18 03/01/18 03/02/18 03/02/18 03/02/18 07:00 15:00 23:00 07:00 15:00 23:00 Intake Total 240 ml 2746 ml Output Total 700 ml 1950 ml Balance -460 ml 796 ml Intake Oral 240 ml IV Total 2746 ml Output Urine Total 700 ml 1950 ml # Voids 3 Result Diagram: 03/02/18 0713 03/02/18 0713 Objective Remarks GENERAL: Cachectic looking male, in no apparent distress. CARDIOVASCULAR: Normal rate and regular rhythm without murmurs, gallops, or rubs. RESPIRATORY: Good respiratory efforts. Breath sounds equal and clear to auscultation bilaterally. GASTROINTESTINAL: Abdomen soft, non-tender, non-distended. Normal active bowel sounds MUSCULOSKELETAL: Extremities without cyanosis, or edema. NEURO: Alert & Oriented x4 to person, place, time, situation. Moves all ext x4 PSYCH: Mood is flat. A/P Problem List: (1) Encephalopathy ICD Code: G93.40 - Encephalopathy, unspecified (2) AIDS (acquired immune deficiency syndrome) ICD Code: B20 - Human immunodeficiency virus [HIV] disease (3) Bandemia ICD Code: D72.825 - Bandemia (4) Oral thrush ICD Code: B37.0 - Candidal stomatitis (5) BRYSON (acute kidney injury) ICD Code: N17.9 - Acute kidney failure, unspecified Assessment and Plan 37-year-old male with HIV/AIDS brought in by his mother for reports of hallucinations. Encephalopathy: acute onset of AMS w/ fidgeting/hallucinations reported by Mother, CT Head w/ no acute findings, MRI negative. 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 Neuro status seems to be back at baseline. -Symptoms resolved. Could be related to illicit drug use. He was positive for marijuana on tox screen. HIV/AIDS: Off antiretroviral therapy due to non-compliance, recent admit for PNA/Bandemia, CD4 <20 on 02/11/18. Continue treatment w/ Bactrim -Appreciate ID following. Continue Bactrim - complete Rx till 03/03 - Serum crypto Ag pending. Patient refused LP Bacteremia: GPC. ?contaminant, ?source - ID following. Repeat blood cultures pending. -Per ID, may DC on Augmentin in the next 1-2 days if blood cultures remain negative. Vancomycin discontinued. BRYSON: Creatinine 1.45, previously 0.74 on 02/15/2018 IVF for hydration -Resolved with IV fluid. Thrush: Oral thrush on last admit, plan for Diflucan 200mg qd x2wks DVT Prophylaxis: SCD/Teds Discharge Planning DC in 24-48 hours. See ID Recs. Need outpatient follow-up with HIV specialist. Anastacia Pop MD March 02, 2018 15:21
[2018-03-02 16:00] VITALS: BP 102/65; PULSE 76; RESP 18; TEMP 98.4; O2SAT 100
[2018-03-02 21:40] VITALS: BP 100/63; PULSE 82; RESP 16; TEMP 97.9; O2SAT 100
[2018-03-03] VITALS: BP 101/65; PULSE 80; RESP 16; TEMP 98; O2SAT 100
[2018-03-03] MEDS ORDERED: VANCOMYCIN INJ 1,800 MG in SODIUM CHLORID 0.9% 500 ML INJ 500 ML IV SCH ×2
[2018-03-03 05:30] VITALS: BP 105/69; PULSE 76; RESP 17; TEMP 98; O2SAT 97
[2018-03-03] MEDS: SULFAMETHOXAZOLE-TRIMETHOPRIM DS 800-160 MG TAB PO SCH ×3 (05:36→21:42)
[2018-03-03] MEDS: FLUCONAZOLE 200 MG TAB PO SCH (08:31)
[2018-03-03] MEDS: DOCUSATE SODIUM 50 MG/SENNA 8.6 MG TAB PO SCH ×2 (08:31→21:00)
[2018-03-03 08:32] VITALS: BP 98/58; PULSE 79; RESP 20; TEMP 98; O2SAT 100
[2018-03-03] MEDS: SODIUM CHLORIDE 0.9% FLUSH 10 ML FLUSH IV FLUSH SCH ×2 (08:32→21:43)
[2018-03-03] MEDS: AMOXICILLIN/CLAVULANATE K 875 MG TAB PO SCH ×2 (11:11→21:41)
[2018-03-03 12:38] VITALS: BP 100/57; PULSE 78; RESP 20; TEMP 97.4; O2SAT 100
--- NOTE | 2018-03-03 15:29 | HHI.PR ---
Subjective Remarks Resting comfortably in bed No event overnight Denied chest and or short of breath No fever or chills Objective Vitals Vital Signs Date Time Temp Pulse Resp B/P (MAP) Pulse Ox O2 Delivery O2 Flow Rate FiO2 03/03/18 12:38 97.4 78 20 100/57 (71) 100 03/03/18 08:32 98.0 79 20 98/58 (71) 100 03/03/18 05:30 98.0 76 17 105/69 (81) 97 03/03/18 00:00 98.0 80 16 101/65 (77) 100 03/02/18 21:40 97.9 82 16 100/63 (75) 100 03/02/18 16:00 98.4 76 18 102/65 (77) 100 I/O 03/02/18 03/02/18 03/02/18 03/03/18 03/03/18 03/03/18 07:00 15:00 23:00 07:00 15:00 23:00 Intake Total 2746 ml 1200 ml 1200 ml Output Total 1950 ml 900 ml 1000 ml Balance 796 ml 300 ml 200 ml Intake Oral 1200 ml 1200 ml IV Total 2746 ml Output Urine Total 1950 ml 900 ml 1000 ml # Voids 3 1 # Bowel Movements 0 Result Diagram: 03/02/1813 03/02/18 07 Objective Remarks GENERAL: This is a well-nourished, well-developed patient, in no apparent distress. CARDIOVASCULAR: RRR, no gallops, or rubs. RESPIRATORY: Fair air entry bilaterally. No W, R, or R GASTROINTESTINAL: Abdomen soft, non-tender, nondistended. Positive bowel sounds MUSCULOSKELETAL: Extremities without clubbing, cyanosis, or edema. Pedal pulses appreciated NEUROLOGICAL: Awake and alert. Moves all extremity. Normal speech.no focal neurological deficit A/P Problem List: (1) Encephalopathy ICD Code: G93.40 - Encephalopathy, unspecified (2) AIDS (acquired immune deficiency syndrome) ICD Code: B20 - Human immunodeficiency virus [HIV] disease (3) Bandemia ICD Code: D72.825 - Bandemia (4) Oral thrush ICD Code: B37.0 - Candidal stomatitis (5) BRYSON (acute kidney injury) ICD Code: N17.9 - Acute kidney failure, unspecified Assessment and Plan 37-year-old male with HIV/AIDS brought in by his mother for reports of hallucinations. 03/03: Continue current care, if blood culture continue to be negative probably discharged tomorrow on Augmentin Encephalopathy: acute onset of AMS w/ fidgeting/hallucinations reported by Mother, CT Head w/ no acute findings, MRI negative. 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 Neuro status seems to be back at baseline. -Symptoms resolved. Could be related to illicit drug use. He was positive for marijuana on tox screen. HIV/AIDS: Off antiretroviral therapy due to non-compliance, recent admit for PNA/Bandemia, CD4 <20 on 02/11/18. Continue treatment w/ Bactrim -Appreciate ID following. Continue Bactrim - complete Rx till 03/03 - Serum crypto Ag pending. Patient refused LP Bacteremia: GPC. ?contaminant, ?source - ID following. Repeat blood cultures pending. -Per ID, may DC on Augmentin in the next 1-2 days if blood cultures remain negative. Vancomycin discontinued. BRYSON: Creatinine 1.45, previously 0.74 on 02/15/2018 IVF for hydration -Resolved with IV fluid. Thrush: Oral thrush on last admit, plan for Diflucan 200mg qd x2wks DVT Prophylaxis: SCD/Teds Almaz Feng MD March 03, 2018 15:29
[2018-03-03 16:00] VITALS: BP 103/57; PULSE 92; RESP 20; TEMP 98.4; O2SAT 100
[2018-03-03 20:47] VITALS: BP 131/57; PULSE 89; RESP 20; TEMP 98.8; O2SAT 100
[2018-03-03] MEDS ORDERED: PHARMACY ORDERED LAB ONE (23:45)
[2018-03-04 00:14] VITALS: BP 97/50; PULSE 85; RESP 18; TEMP 98.3; O2SAT 99
[2018-03-04 04:53] VITALS: BP 109/68; PULSE 86; RESP 18; TEMP 99.5; O2SAT 97
[2018-03-04 08:21] VITALS: BP 93/56; PULSE 89; RESP 20; TEMP 97.9; O2SAT 99
[2018-03-04] MEDS: DOCUSATE SODIUM 50 MG/SENNA 8.6 MG TAB PO SCH (09:10)
[2018-03-04] MEDS: AMOXICILLIN/CLAVULANATE K 875 MG TAB PO SCH (09:10)
[2018-03-04] MEDS: SODIUM CHLORIDE 0.9% FLUSH 10 ML FLUSH IV FLUSH SCH (09:10)
[2018-03-04] MEDS: FLUCONAZOLE 200 MG TAB PO SCH (09:10)
--- NOTE | 2018-03-04 10:11 | HHI.IDPN ---
Subjective Subjective Remarks Patient is a 37-year-old male with known HIV, last CD4 count less than 20, recently hospitalized and treated for possible PCP pneumonia the second week of February. He was discharged to home, and he was living with his mother. Patient was apparently noted by the mom to be having behavior changes and was noted to be fidgety and very irritable. When I saw the patient this morning, he was awake and alert, and was upset that I am doing some mental status examination. He knows he is at [facility], and the year is 2017. He knows that the president is Latrell Delgado. Denies any headache or any photophobia. Denies any nausea or vomiting, or any urinary complaints. He does not really know why he was taken to the hospital. He has not had any fever chills or sweats. Patient stated that since he was discharged he has not really gotten out and has stayed mostly at home. Patient stated also that he has been taking his medication as prescribed from the hospital when he was discharged. Since admission he has been afebrile. Chest x-ray is normal. CT of the head is negative. WBC is better and up to 3, it was 1.7 on his last admission. His CD4 count during his last admission was less than 20. He has not been taking any HAART, and has not really had any follow-up with an HIV provider since he was discharged from the hospital around February 14. Infectious disease consultation has been requested to assist with evaluation and treatment of this patient with HIV, and has some behavioral issues. Notes reviewed Afebrile Mental status seems ok No new (+) BC Crypto AG negative Completed BActrim Rx Clinically stable Antibiotics Current Medications Medications (Trade) Dose Ordered Sig/Brittny Route Start Time Stop Time Status Last Admin (NS Flush) 2 ml UNSCH PRN IV FLUSH 02/26/18 18:45 (NS Flush) 2 ml BID IV FLUSH 02/26/18 21:00 03/04/18 09:10 (Tylenol) 650 mg Q4H PRN PO 02/26/18 18:45 (Reglan Inj) 5 mg Q6H PRN IV PUSH 02/26/18 18:45 (Narcan Inj) 0.4 mg UNSCH PRN IV PUSH 02/26/18 18:45 (Vicki-Colace) 1 tab BID PO 02/26/18 21:00 02/28/18 10:47 (Milk Of Magnesia Liq) 30 ml Q12H PRN PO 02/26/18 18:45 (Senokot) 17.2 mg Q12H PRN PO 02/26/18 18:45 (Dulcolax Supp) 10 mg DAILY PRN RECTAL 02/26/18 18:45 (Lactulose Liq) 30 ml DAILY PRN PO 02/26/18 18:45 (Zithromax) 1,200 mg Q7D PO 02/26/18 21:00 02/26/18 23:02 (Diflucan) 200 mg DAILY PO 02/27/18 09:00 03/04/18 09:10 (Augmentin) 875 mg Q12HR PO 03/03/18 10:00 03/10/18 09:59 03/04/18 09:10 Lines No evidence of infection Past Medical History HIV Allergies: Coded Allergies: No Known Allergies (Verified Allergy, Unknown, 02/26/18) Objective . Vital Signs Date Time Temp Pulse Resp B/P (MAP) Pulse Ox O2 Delivery O2 Flow Rate FiO2 03/04/18 08:21 97.9 89 20 93/56 (68) 99 03/04/18 04:53 99.5 86 18 109/68 (82) 97 03/04/18 00:14 98.3 85 18 97/50 (66) 99 03/03/18 20:47 98.8 89 20 131/57 (81) 100 03/03/18 16:00 98.4 92 20 103/57 (72) 100 03/03/18 12:38 97.4 78 20 100/57 (71) 100 03/04/18 03/04/18 03/05/18 15:00 23:00 07:00 Output Total 1000 ml Balance -1000 ml Output Urine Total 1000 ml Imaging Last Impressions Brain MRI 02/27/18 0000 Signed Impressions: CONCLUSION: 1. Unremarkable MRI of the brain. 2. Evidence of chronic sinus disease. Chest X-Ray 02/26/18 1551 Signed Impressions: CONCLUSION: Negative examination. Head CT 02/26/18 0000 Signed Impressions: CONCLUSION: 1. Negative CT Head with and without contrast. Physical Exam GENERAL: Patient is a thin, well-developed male, awake and alert, NAD SKIN: Cool and dry. Has scattered hyperpigmented macules. No ecchymoses. HEAD: Atraumatic. Normocephalic. No temporal wasting, or tenderness. EYES: [place] conjunctiva. No petechia or hemorrhage. Pupils equal, round and reactive to light. Extraocular movements full and intact. No scleral icterus. No injection or drainage. EARS, NOSE AND THROAT: Nose without bleeding or purulent nasal discharge. No sinus tenderness. Mucous membranes pink and moist. No oral lesions noted. NECK: Trachea midline. Supple and not tender, no meningeal signs. No nuchal rigidity CARDIOVASCULAR: Regular rate and rhythm. No murmurs, rubs or gallops heard RESPIRATORY: Clear to auscultation. Breath sounds equal bilaterally. No rales , wheezing or rhonchi ABDOMEN: Soft, non-tender, nondistended. Bowel sounds present and normoactive. No guarding. No rebound. No organomegaly. EXTREMITIES: No clubbing, cyanosis, or edema.No joint effusion, has good ROM. No calf tenderness. Well perfused and warm. NEUROLOGICAL: Non-focal PSYCHIATRIC: cooperative LINE: No evidence of infection Assessment & Plan Remarks IMPRESSION HIV, has very low CD4 counts <20 (+) BC with different organims, looks more contaminant - repeat BC negative On Rx for PCP, CXR now clear Altered behavior, fidgety and irritable RECOMMENDATION Continue Zithromax for prophylaxis Give Augmentin x 7 days Stop Diflucan Patient ok for D/C from ID standpoint Follow-up with his HIV provider Rula Kennedy MD Mar 04, 2018 10:11
[2018-03-04] MEDS ORDERED: AUGM875T3 PO (11:04)
--- NOTE | 2018-03-04 16:42 | HHI.DS ---
Discharge Summary Admission Date February 26, 2018 at 18:55 Discharge Date: Mar 04, 2018 Admitting Diagnosis HIV/AIDS, hallucinations, bandemia, acute kidney injury, dehydration (1) Encephalopathy ICD Code: G93.40 - Encephalopathy, unspecified (2) AIDS (acquired immune deficiency syndrome) ICD Code: B20 - Human immunodeficiency virus [HIV] disease (3) Bandemia ICD Code: D72.825 - Bandemia (4) Oral thrush ICD Code: B37.0 - Candidal stomatitis (5) BRYSON (acute kidney injury) ICD Code: N17.9 - Acute kidney failure, unspecified Procedures See below Brief History - From Admission This is a 37-year-old male with a PMH of HIV/AIDS (CD4 <20 on 02/11/18), Thrush and Noncompliance who was brought to the ER by Mother for AMS. Mother notes pt more confused and having visual/auditory hallucinations. Recent admit 02/10-02/14 for PNA and Bandemia, s/p eval by ID and tx w/ Bactrim/Rocephin/Zithro, d/c' d home on Bactrim/Zithro and Diflucan for thrush, unclear if pt taking medications. Pt unable to provide any history at this time as he received sedation for imaging. On arrival, BP 109/76, HR 126, O2 sat 100% on RA, Afebrile. WBC 3.0, previously 1.4 on 02/15/2018. Hemoglobin 10.4. Bands 22%, previously 21% on 02/14/2018. Creatinine 1.45, previously 0.74 on 02/15/2018. Lactic Acid 2.3. CXR negative. CT Head negative. IR consult for LP ordered. CBC/BMP: 03/02/18 0713 03/02/18 0713 Significant Findings Laboratory Tests Test 03/02/18 01:50 03/02/18 07:13 03/02/18 16:45 Vancomycin Level Trough 21.2 MCG/ML (5.0-10.0) White Blood Count 1.7 TH/MM3 (4.0-11.0) Red Blood Count 2.90 MIL/MM3 (4.50-5.90) Hemoglobin 8.9 GM/DL (13.0-17.0) Hematocrit 27.1 % (39.0-51.0) Monocytes (%) (Auto) 19.4 % (0.0-8.0) Eosinophils (%) (Auto) 8.4 % (0.0-4.0) Neutrophils # (Auto) 0.7 TH/MM3 (1.8-7.7) Lymphocytes # (Auto) 0.5 TH/MM3 (1.0-4.8) Band Neutrophils % 9 % (0-6) Eosinophils % 11 % (0-4) Neutrophils # (Manual) 0.9 TH/MM3 (1.8-7.7) Ovalocytes 1+ (NORMAL) Blood Urea Nitrogen 6 MG/DL (7-18) Creatinine 0.56 MG/DL (0.60-1.30) Calcium Level 8.3 MG/DL (8.5-10.1) Chloride Level 108 MEQ/L (98-107) PE at Discharge GENERAL: This is a well-nourished, well-developed patient, in no apparent distress. CARDIOVASCULAR: RRR, no gallops, or rubs. RESPIRATORY: Fair air entry bilaterally. No W, R, or R GASTROINTESTINAL: Abdomen soft, non-tender, nondistended. Positive bowel sounds MUSCULOSKELETAL: Extremities without clubbing, cyanosis, or edema. Pedal pulses appreciated NEUROLOGICAL: Awake and alert. Moves all extremity. Normal speech.no focal neurological deficit Hospital Course 37-year-old male with HIV/AIDS brought in by his mother for reports of hallucinations. Encephalopathy: acute onset of AMS w/ fidgeting/hallucinations reported by Mother, CT Head w/ no acute findings, MRI negative. 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 Neuro status seems to be back at baseline. -Symptoms resolved. Could be related to illicit drug use. He was positive for marijuana on tox screen. HIV/AIDS: Off antiretroviral therapy due to non-compliance, recent admit for PNA/Bandemia, CD4 <20 on 02/11/18. Continue treatment w/ Bactrim -Appreciate ID following. Continue Bactrim - complete Rx till 03/03 - Serum crypto Ag pending. Patient refused LP Bacteremia: GPC. ?contaminant, ?source - ID consulted, she recommended following blood culture continue to be negative so she cleared patient to be discharged on Augmentin - BRYSON: Creatinine 1.45, previously 0.74 on 02/15/2018 IVF for hydration -Resolved with IV fluid. Thrush: Oral thrush on last admit, plan for Diflucan 200mg qd x2wks DVT Prophylaxis: SCD/Teds [id number] encounter performed with the patient on discharge day, as well as physical exam, summary of hospitalization course and postdischarge plan has been D/W the patient. D/W nurse D/W pillowcase folder. Discharge medications reviewed and printed and signed, post discharge follow up visit with PCP and other specialist as well as Brief hospital course and discharge summary has been placed. Pt Condition on Discharge: Fair Discharge Disposition: Discharge Home Discharge Time: > 30 minutes Discharge Instructions DIET: Follow Instructions for: Heart Healthy Diet Activities you can perform: Weight Bearing as Mann Follow up Referrals: PCP Follow-up New Medications: Amoxicillin-Clavulanate (Augmentin) 875-125 Mg Tab 1 TAB PO BID for Infection, #14 TAB 0 Refills Continued Medications: Azithromycin (Azithromycin) 600 Mg Tab 1200 MG PO Q7D for MAC Inf for 30 Days, #4 TAB [Budeson-Formot 160-4.5 Mcg Inh] () 60 PUFF AERO 2 PUFF INH Q12HR for Broncospasm, #1 INHALER [guaiFENesin ER] () 600 MG TABCR 600 MG PO BID for Cough, #14 [Nystatin Liq] () 5 ML SUSP 5 ML SWISH-SWAL QID for Infection for 10 Days, #1 BOTTLE Almaz Feng MD Mar 04, 2018 16:42
== END 2018-03-04 12:24 | disposition home or self-care (01) | DRG 975 ==
LOC: NEPE 15:13 → NEDA 18:55 → N05A 20:42
PROVIDERS: ADMIT Hospitalist; ATTEND Hospitalist
DX: B20 Human immunodeficiency virus [HIV] disease (principal); G93.40 Encephalopathy, unspecified; N17.9 Acute kidney failure, unspecified; B37.0 Candidal stomatitis; R78.81 Bacteremia; F17.290 Nicotine dependence, other tobacco product, uncomplicated; E86.0 Dehydration; Z91.19 Patient's noncompliance with other medical treatment and regimen
CPT/HCPCS: 70470; 70553; 71045; 76937; 80048; 80053; 80202; 80307; 81001; 82550; 83605; 85007; 85027; 85610; 85730; 86403; 87015; 87040; 87147; 87186; 87205; 87899; 90686; 93005; 96361; 96374; 96376; A9579; J2060; J3370; J7030; J7040; J7060; Q2038; Q9967